=== PATIENT | female | born 1975 | race Caucasian/White ===

== ENCOUNTER 2022-07-31 17:14 | Emergency (ER) | payer OTHER, SELFPAY ==
[2022-07-31 17:15] VITALS: BP 155/62; PULSE 84; RESP 16; TEMP 36.7; O2SAT 96; BMI 44.6
--- NOTE | 2022-07-31 17:46 | XR_ITS ---
PROCEDURE INFORMATION: Exam: XR Chest Exam date and time: 07/31/2022 5:55 PM Age: 47 years old Clinical indication: Cough and other: Congestion; Additional info: Cough, congestion TECHNIQUE: Imaging protocol: Radiologic exam of the chest. Views: 2 views. COMPARISON: No relevant prior studies available. FINDINGS: Lungs: Mild hyperexpansion and hyperlucency with mild diaphragmatic flattening suggesting possible COPD. Pulmonary vasculature grossly normal. Bilateral perihilar stranding with mild bronchial wall thickening suspicious for changes of bronchitis/bronchiolitis versus chronic perihilar scarring/fibrosis. No consolidations. Mild bilateral apical pleural/parenchymal scarring. Granulomatous calcification in the right mid lung. Pleural spaces: No pleural effusion. No pneumothorax. Heart/Mediastinum: Heart size normal. No tracheal/mediastinal shift. Bones/joints: No acute osseous abnormalities are identified. IMPRESSION: 1. Bilateral perihilar stranding and peribronchial thickening suggesting changes of bronchitis versus perihilar scarring/fibrosis. 2. No consolidations. 3. Underlying changes of COPD and prior granulomatous disease..
--- NOTE | 2022-07-31 17:48 | HMH.EDGENADL ---
Discharge Plan Disposition Patient Disposition: Home, Self-Care Condition: Good Prescriptions Prescriptions: New levofloxacin 500 mg tablet 500 mg PO DAILY 10 Days Qty: 10 0RF prednisone 20 mg tablet 20 mg PO BID Qty: 10 0RF albuterol sulfate 90 mcg/actuation HFA aerosol inhaler 1 - 2 puff inhalation Q6H PRN (Reason: Wheezing) Qty: 1 0RF fluoxetine [Prozac] 20 mg capsule 20 mg PO DAILY Qty: 30 0RF hydroxyzine pamoate [Vistaril] 25 mg capsule 25 mg PO HSP PRN (Reason: sleep) Qty: 30 0RF omeprazole 40 mg capsule,delayed release(DR/EC) 40 mg PO DAILY Qty: 30 0RF fluticasone furoate-vilanterol [Breo Ellipta] 100-25 mcg/dose blister with device 1 inh inhalation DAILY Qty: 1 0RF Referrals Follow up/Referrals: Catalina Araiza APRN [Primary Care Provider] - See instructions Activity Restrictions/Add. Instructions Additional Instructions/Restrictions: Take Levaquin and prednisone as prescribed. Refills on your other medications as prescribed. Follow-up with your primary care provider, call for appointment. Additional instructions for ACUTE BRONCHITIS: Use Tylenol or Ibuprofen for pain or fever. Rest and plenty of fluids. Return immediately if you have an uncontrollable fever greater than 102 degrees, severe headache or neck stiffness, difficulty breathing or shortness of breath, persistent vomiting, severe sore throat or inability to swallow. See your physician if not improving in 4-5 days. Clinical Impressions Clinical Impression: Acute bronchitis, COPD (chronic obstructive pulmonary disease), Medication refill Instructions Patient Instructions: DI for Acute Bronchitis Discharge ED Provider: Cristhian Hyman General Adult HPI General Chief complaint: Upper Respiratory Infection Stated complaint: Cough,SOB,Congestion NARAYAN Time Seen by Provider: 07/31/22 17:30 Mode of Arrival: Ambulatory Source of Information: Patient Limitations: No Limitations Description of Symptoms (Recalled from ER Triage Doc. by RN): PT STATES SHE HAS BEEN OUT OF ALL MEDICATIONS X 4 MONTHS. PT STATES SHE FEELS LIKE HER COPD IS ACTING UP AND SHE NEEDS REFILLS ON HER MEDICATIONS. History of Present Illness HPI narrative: Patient states that she has been sick for the past few days with a cough producing clear to white sputum and shortness of breath. Denies fever. She does have rhinorrhea. She says that she has COPD and wants to get treated before things get worse. She is a smoker. She states that she has not seen her primary care provider since January of this year. She has been out of her medications for 4 months. She says that her primary care provider, Catalina Araiza, moved from [place] to [facility] and she has not been able to get over to see her. She lists her current medications is Prozac 20 mg daily, Vistaril 25 mg at night as needed, omeprazole 40 mg daily, albuterol inhaler, and 1 other inhaler. No known exposure to COVID. Related Data Previous Rx's Medication Instructions Recorded albuterol sulfate 90 mcg/actuation 1 - 2 puff inhalation Q6H PRN 07/31/22 aerosol inhaler Wheezing #1 ea fluoxetine 20 mg capsule (Prozac) 20 mg PO DAILY #30 caps 07/31/22 fluticasone furoate 100 1 inh inhalation DAILY #1 ea 07/31/22 mcg-vilanterol 25 mcg/dose inhalation powder (Breo Ellipta) hydroxyzine pamoate 25 mg capsule 25 mg PO HSP PRN sleep #30 caps 07/31/22 (Vistaril) levofloxacin 500 mg tablet 500 mg PO DAILY 10 days #10 tabs 07/31/22 omeprazole 40 mg capsule,delayed 40 mg PO DAILY #30 caps 07/31/22 release prednisone 20 mg tablet 20 mg PO BID #10 tabs 07/31/22 Allergies Allergy/AdvReac Type Severity Reaction Status Date / Time NO KNOWN ALLERGIES Allergy Uncoded 10/13/17 15:19 PFSH PFSH Social History Smoking Status: Current every day smoker ROS Obtained: Yes Systems reviewed as appropriate & no additional complaints except as documented Constitutional Constitut
--- NOTE | 2022-07-31 18:00 | PC.NURSE ---
rounded on pt at this time. no needs voiced
[2022-07-31 18:01] VITALS: BP 122/77; PULSE 77; RESP 18; O2SAT 95
--- NOTE | 2022-07-31 18:04 | PC.NURSE ---
pt to radiology at this time
--- NOTE | 2022-07-31 18:05 | PC.NURSE ---
pt returned from radiology
[2022-07-31 18:38] VITALS: BP 122/77; PULSE 80; RESP 16; TEMP 36.7; O2SAT 96
== END 2022-07-31 18:39 | disposition home or self-care (01) ==
LOC: ER 18:15
PROVIDERS: Emergency Provider Emergency Medicine; PCP Nurse Practitioner Family
DX: J20.9 Acute bronchitis, unspecified (principal); J44.0 Chronic obstructive pulmonary disease with (acute) lower respiratory infection; Z76.0 Encounter for issue of repeat prescription; Z72.0 Tobacco use
CPT/HCPCS: 71046; 94640; 99283

== ENCOUNTER 2023-01-11 20:58 | Emergency (ER) | payer OTHER, SELFPAY ==
[2023-01-11 20:58] VITALS: BP 151/72; PULSE 62; RESP 23; TEMP 37.1; O2SAT 98; BMI 44.8
[2023-01-11 20:59] VITALS: BMI 44.8
--- NOTE | 2023-01-11 21:01 | ECG_ITS ---
APPROVED REPORT Exam: Resting ECG HR:74 bpm ECG Measurements Heart Rate 74 AXES DE 155 P 27 QRSd 100 QRS 56 QT 395 T 74 QTc 423 Conclusion SINUS RHYTHM NORMAL ECG UNCONFIRMED REPORT Electronically signed by : Jerod Muñoz MD 01/12/2023 17:33:47
--- NOTE | 2023-01-11 21:01 | XR_ITS ---
PROCEDURE INFORMATION: Exam: XR Chest Exam date and time: 01/11/2023 9:07 PM Age: 47 years old Clinical indication: Pain; Chest pressure; Additional info: SOA TECHNIQUE: Imaging protocol: Radiologic exam of the chest. Views: 2 views. COMPARISON: CR XR CHEST 2V 07/31/2022 5:55 PM FINDINGS: Lungs: Stable interstitial coarsening. No consolidation. Pleural spaces: No pneumothorax. Heart/Mediastinum: No cardiomegaly. Bones/joints: Scoliosis. No acute fracture. IMPRESSION: No acute findings.
--- NOTE | 2023-01-11 21:11 | PC.NURSE ---
RT at BS to administer breathing treatment
[2023-01-11 21:15] LABS: Basophils # 0.1 K/mm3 (0-0.2); Basophils % 1.7 % (0.1-2.0); Eosinophils # 0.1 K/mm3 (0.0-0.4); Eosinophils % 1.1 % (0.1-12.0); Hematocrit 42.7 % (37.0-47.0); Hemoglobin 13.7 g/dL (12.2-16.2); Lymphocytes # 3.3 K/mm3 (0.7-4.5); Lymphocytes % 40.4 % (10-50); Mean Corpuscular HGB Conc 32.1 g/dL (31.8-35.4); Mean Corpuscular Hemoglobin 29.7 pg (27.0-31.2); Mean Corpuscular Volume 92.4 fl (81-99); Mean Platelet Volume 8.1 fl (7.4-10.4); Monocytes # 0.4 K/mm3 (0.1-1.0); Monocytes % 5.4 % (1.7-9.3); Neutrophils # 4.1 K/mm3 (1.8-7.8); Neutrophils % 51.4 % (37.0-80.0); Platelet Count 281 K/mm3 (142-424); Red Blood Count 4.62 M/mm3 (4.20-5.40); Red Cell Distribution Width 13.6 % (11.5-17.5)
[2023-01-11 21:16] LABS: Coronavirus 19, PCR Not Detected (NotDetected); Influenza A, PCR Not Detected (NotDetected); Influenza B, PCR Not Detected (NotDetected)
--- NOTE | 2023-01-11 21:16 | PC.NURSE ---
Pt gone to RAD via wheelchair
[2023-01-11 21:18] LABS: Alanine Aminotransferase 19 U/L (12-78); Albumin Level 4.7 g/dl (3.5-5.0); Albumin/Globulin Ratio 1.7 (1.1-1.8); Alkaline Phosphatase 53 U/L (38-126); Anion Gap 10.5 mEq/L (5-15); Aspartate Amino Transferase 32 U/L (14-36); Bilirubin,Total 0.5 mg/dl (0.2-1.3); Blood Urea Nitrogen 16 mg/dl (7-17); Calcium 8.8 mg/dl (8.4-10.2); Carbon Dioxide 32 mmol/L (22.0-30.0); Chloride 102 mmol/L (98-107); Creatinine Clearance Estimated 78 mL/min (50-200); Estimated Glomerular Filt Rate 89 ml/min (>60); GFR (African American) 108 ML/MIN (>60); Globulin 2.7 g/dL (1.3-3.2); Glucose 106 mg/dl (74-100); Potassium 3.5 mmoL/L (3.5-5.1); Sodium 141 mmol/L (136-145); Total Protein,Serum 7.4 g/dl (6.3-8.2)
--- NOTE | 2023-01-11 21:19 | PC.NURSE ---
Pt back from RAD
[2023-01-11 21:23] LABS: C-Reactive Protein 1.2 mg/L (0-4)
[2023-01-11 21:31] VITALS: BP 124/67; RESP 16
[2023-01-11 21:32] LABS: NT Pro Brain Natriuretic Pep. 169 pg/mL (0-125)
--- NOTE | 2023-01-11 21:33 | HMH.EDSOB ---
Discharge Plan Disposition Chief Complaint: Shortness of Breath/Dyspnea Prescriptions Prescriptions: No Action albuterol sulfate 90 mcg/actuation HFA aerosol inhaler 1 - 2 puff inhalation Q6H PRN (Reason: Wheezing) Qty: 1 0RF hydroxyzine pamoate [Vistaril] 25 mg capsule 25 mg PO HSP PRN (Reason: sleep) Qty: 30 0RF omeprazole 40 mg capsule,delayed release(DR/EC) 40 mg PO DAILY fluoxetine [Prozac] 20 mg capsule 20 mg PO DAILY fluticasone furoate-vilanterol [Breo Ellipta] 100-25 mcg/dose blister with device 1 inh inhalation DAILY rosuvastatin 40 mg tablet 40 mg PO DAILY Referrals Follow up/Referrals: Megan Pena APRN [Primary Care Provider] - See instructions Clinical Impressions Clinical Impression: Chest pain Instructions Patient Instructions: DI for Chest Pain Discharge ED Provider: Gifty (ED)Chaitanya Resp/SOB HPI General Chief Complaint: Shortness of Breath/Dyspnea Stated Complaint: SOA with chest tightness Time Seen by Provider: 01/11/23 21:00 Mode of Arrival: Family Vehicle Source of Information: Patient, Relative and Medical Record Limitations: No Limitations Description of Symptoms (Recalled from ER Triage Doc. by RN): Pt c/o SOA, tightness in her chest from her breathing, and posterior neck pain. States this has been going on for about 3 days. She denies any n/v/d. She does any significant cardiac hx. She reports I have been feeling so bad and I'm out of my medicines . Pt is out Prozac, Omeprazole, and Rousvastatin for over 1 wk. Denies any productive cough. History of Present Illness over the last week has chest tightness with rad to neck - no known ht dis- no resp sx - does smoke - reports sx with min exertion Complaint: shortness of breath, pain with inspiration and chest pain Onset (ago): day(s) Severity: moderate Consistency/Duration: intermittent Known history of: COPD and other (hyperlipidemia) Associated symptoms: denies other symptoms Treatment prior to arrival: none Related Data Home oxygen amount: none Home Medications Medication Instructions Recorded Confirmed fluoxetine 20 mg capsule (Prozac) 20 mg PO DAILY Anxiety with 01/11/23 01/11/23 depression fluticasone furoate 100 1 inh inhalation DAILY Breathing 01/11/23 01/11/23 mcg-vilanterol 25 mcg/dose problems inhalation powder (Breo Ellipta) omeprazole 40 mg capsule,delayed 40 mg PO DAILY GERD 01/11/23 01/11/23 release rosuvastatin 40 mg tablet 40 mg PO DAILY High cholesterol 01/11/23 01/11/23 Previous Rx's Medication Instructions Recorded albuterol sulfate 90 mcg/actuation 1 - 2 puff inhalation Q6H PRN 07/31/22 aerosol inhaler Wheezing #1 ea hydroxyzine pamoate 25 mg capsule 25 mg PO HSP PRN sleep #30 caps 07/31/22 (Vistaril) Allergies Allergy/AdvReac Type Severity Reaction Status Date / Time Penicillins Allergy Unknown as a Verified 01/11/23 21:18 child Well's Criteria PE Score Clinical signs/symptoms of DVT: No PE is #1 diagnosis or equally likely: Yes Heart rate is > 100: Yes Immobile at least 3 days, or surgery in past 4 wks: No Previously, obj. diagnosed PE or DVT: No Hemoptysis: No Malignancy w/Rx within 6mo, or palliative: No PE Score: 4 Risk of Pulmonary Embolism by score: >3 pts=Hi Risk (78%) [facility] Disclaimer: The information contained in this section may have been updated after the patient was seen, as this information can be updated by other users. Social History Smoking Status: Current every day smoker alcohol intake: never current occupational status: employed Travel in the last 8 weeks: None ROS Obtained: Yes All systems reviewed & no additional complaints except as documented Physical Exam General General appearance: alert and obese Head Head exam: normocephalic Eye Eye exam: Present PERRL and EOMI ENT ENT exam: Present mucous membranes moist Neck Neck exam: Present trachea midline Respiratory Respiratory
[2023-01-11 21:35] LABS: Troponin I < 0.01 ng/ml (0.00-0.034)
[2023-01-11 21:37] LABS: Procalcitonin 0.043 ng/mL (0.0-2.0)
--- NOTE | 2023-01-11 21:40 | PC.NURSE ---
Dr. Durbin at
[2023-01-11 21:48] LABS: Erythrocyte Sedimentation Rate 15 mm/hr (0-20)
--- NOTE | 2023-01-11 21:54 | PC.NURSE ---
pt attempting to give a urine sample
--- NOTE | 2023-01-11 21:57 | PC.NURSE ---
Pt ambulatory to bathroom and was able to provide urine sample
[2023-01-11 22:00] VITALS: BP 132/71; PULSE 65; RESP 17; O2SAT 97
[2023-01-11 22:02] LABS: Microscopic, Urine URINE MICROSCOPIC (MICROSCOPIC)
--- NOTE | 2023-01-11 22:02 | PC.NURSE ---
Rechecked with pt's pain. After the nitro tablet, her tightness is now 0/10 on LACE ROLLER. notified and new order for 1 Nitro paste. Pt & her daughter updated on POC and results thus far.
[2023-01-11 22:14] LABS: Appearance,Urine CLEAR (Clear); Bilirubin,Urine Negative (Negative); Blood, Urine Negative (Negative); Color,Urine YELLOW (Yellow); Glucose,Urine (UA) Negative (Negative); Ketones,Urine Negative (Negative); Leukocyte Esterase,Urine TRACE (Negative); Nitrate,Urine Negative (Negative); PH,Urine 6.5 (5.0-8.5); Protein,Urine Negative (Negative); Specific Gravity, Urine <= 1.005 (1.005-1.030); Urobilinogen,Urine 0.2 EU/dl (0.2)
--- NOTE | 2023-01-11 22:16 | PC.NURSE ---
Dr. Durbin at BS speaking with pt
[2023-01-11 22:30] VITALS: BP 127/73; PULSE 69; RESP 18; O2SAT 97
[2023-01-11 22:48] LABS: Bacteria,Urine Trace /lpf; Squamous Epithelial Cell,Urine 20-50 #/hpf (0-5)
[2023-01-11 22:50] LABS: D-Dimer 0.68 ug/mL (0.0-0.5)
--- NOTE | 2023-01-11 22:52 | CT_ITS ---
PROCEDURE INFORMATION: Exam: CTA Chest With Contrast Exam date and time: 01/11/2023 11:13 PM Age: 47 years old Clinical indication: Shortness of breath; Additional info: SOA, chest pain, elevated d-dimer TECHNIQUE: Imaging protocol: Computed tomographic angiography of the chest with contrast. 3D rendering (Not supervised by radiologist): MIP and/or 3D reconstructed images were created by the technologist. Radiation optimization: All CT scans at this facility use at least one of these dose optimization techniques: automated exposure control; mA and/or kV adjustment per patient size (includes targeted exams where dose is matched to clinical indication); or iterative reconstruction. Contrast material: ISOVUE; Contrast volume: 70 ml; Contrast route: INTRAVENOUS (IV); REPORTING DATA: Count of CT and Cardiac NM exams in prior 12 months: This patient has received 0 known CTs and 0 known cardiac nuclear medicine studies in the 12 months prior to the current study. COMPARISON: CR XR CHEST 2V 01/11/2023 9:07 PM FINDINGS: Pulmonary arteries: Normal. No pulmonary emboli. Aorta: Unremarkable. No aortic aneurysm. No aortic dissection. Lungs: Calcified granuloma right lung Pleural spaces: Unremarkable. No pneumothorax. No pleural effusion. Heart: Unremarkable. No cardiomegaly. No pericardial effusion. Lymph nodes: Unremarkable. No enlarged lymph nodes. Bones/joints: Unremarkable. No acute fracture. Soft tissues: Unremarkable. IMPRESSION: No evidence for pulmonary embolus.
--- NOTE | 2023-01-11 22:57 | PC.NURSE ---
s/w pt regarding PE protocol CT, she is agreeable.
--- NOTE | 2023-01-11 22:59 | PC.NURSE ---
pt back from CT scan
--- NOTE | 2023-01-11 23:08 | PC.NURSE ---
pt to ct scan via wheelchair
--- NOTE | 2023-01-11 23:09 | PC.NURSE ---
Pt gone to CT
--- NOTE | 2023-01-11 23:17 | PC.NURSE ---
pt back from CT scan
[2023-01-12 00:09] LABS: Troponin I < 0.01 ng/ml (0.00-0.034)
--- NOTE | 2023-01-12 00:10 | PC.NURSE ---
Dr. Durbin s/w Dr. Serna- hospitalist for possible admission.
[2023-01-12 00:13] VITALS: BP 124/67; PULSE 83; RESP 19; TEMP 36.8; O2SAT 95
--- NOTE | 2023-01-12 00:14 | PC.NURSE ---
Pt ambulatory to bathroom
--- NOTE | 2023-01-12 00:15 | PC.NURSE ---
Dr. Durbin at bedside discussing results and discharge.
== END 2023-01-12 00:29 | disposition home or self-care (01) ==
PROVIDERS: Emergency Provider Emergency Medicine; PCP Nurse Practitioner
DX: R07.89 Other chest pain (principal); R06.02 Shortness of breath
CPT/HCPCS: 71046; 71275; 80053; 81001; 83880; 84145; 84484; 85025; 85378; 85651; 86140; 96360; 96361; 96374; 99285; C9803; Q9967; U0003; U0005

== ENCOUNTER 2025-04-19 14:37 | Outpatient (CLI) | payer OTHER, SELFPAY ==
--- NOTE | 2025-04-19 14:39 | CT_ITS ---
FINAL REPORT CLINICAL HISTORY: SCREENING current smoker 1/2ppd x37 years, copd COMPARISON: CTA chest 01/12/2023 FINDINGS: CT CHEST LOW DOSE SCREENING 50-year-old female, current smoker, [id number] history HISTORY: Screening exam for lung cancer. DOSE: CTDI vol: 2.90 mGy, DLP: 100.55 mGy*cm TECHNIQUE: Axial CT without IV contrast administration using low dose protocol. This study was performed with techniques to keep radiation doses as low as reasonably achievable, (ALARA). Individualized dose reduction techniques using automated exposure control or adjustment of mA and/or kV according to the patient's size were employed. No acute lung disease is present. There is fibrosis/partial collapse of the right middle lobe, that is similar to that seen on the prior CTA of 2022. No pulmonary lesions are seen suspicious for neoplasm. No pleural or pericardial effusion is seen. No adenopathy or mass lesion is present. IMPRESSION: No evidence of primary lung neoplasm, stable exam. LUNG RADS CATEGORY 1 RECOMMENDATION: 12 month LDCT follow up Reviewed, Interpreted and Dictated by Ruddy Martines MD Transcribed by Olivia Vazquez Authenticated and [facility]
--- OUTSIDE RECORDS SUMMARY | 2025-04-19 14:42 | XMS_ITS | Data Portability ---
Author Organization [employer] [facility] Address [address] [place] [address] Assessment Encounter Date Assessment Date Assessment LastModified by Organization Details LastModified Time 10/20/2024 10/20/2024 Mouthpiece on current tubing set is broken, needs new tubing/mouthpi gisel for nebulizer. SP02 in clinic improved to 90% from 86% on arrival after neb, but breath sound still abnormal. She is not in distress. We will treat for COPD exacerbation, but get chest XR to r/o pneumonia. Negative for COVID/influenz a. Medications as prescribed per plan below. To ER with severe SOA. Follow up if no improvement or worsening and PRN. Not available 10/20/2024 15:00:32 Plan of Treatment Reminders Order Date Submit Date Provider Last Modified By Organization Details Last Modified Time Details Appointments SAME DAY ACCESS 2024 10:15A M Transporter Not available Not available Not available FOLLOW UP 15 2024 10:45A M Curt Pena APRN Not available Not available Not available Lab lipid panel, serum 2024 025 [employer] [facility] ([place]), [address], [place], [address], 03/29/2025 08:12:14 CMP, serum or plasma 2024 025 NOEMI [facility]), [address], [place], [address], 03/29/2025 08:12:13 CBC w/ auto diff 2024 025 [facility] [address] [place], [address], 03/29/2025 08:12:13 TSH + free T4, serum 2024 025 [facility] [address] [place], [address], 03/29/2025 08:12:12 HbA1c (hemog lobin A1c), blood 2024 025 [facility] [address] [place], [address], 03/29/2025 08:12:15 vitami n D, 25-hyd juve, total, serum 2024 025 [facility] [address] [place], [address], 03/29/2025 08:12:15 cobala min and folate panel, serum 2024 025 [facility] ([place]), [address] [place], [address], 03/29/2025 08:12:14 rapid flu (A+B) [address], [address], 10/20/2024 14:34:37 rapid SARS CoV 2 Ag, QL, [place], upper respir atory specim en [address], [address], 10/20/2024 14:34:37 Referral None record ed. Procedures None record ed. Surgeries None record ed. Imaging LDCT, chest, for lung cancer screen ing - first avail [address] ([facility]), [address], [place], [address], 04/18/2025 10:10:24 home sleep study [address] [facility], [address], [place], [address], 04/06/2025 10:23:12 XR, chest, 2 view 2023 024 [facility], [address] [place] [address], [address], 10/20/2024 17:24:03 Medication Orders fluoxe gia 20 mg capsul e [address] [facility], [address] [place] [address], [address], 03/28/2025 16:31:21 fluoxe gia 40 mg capsul e [address] [facility], [address] [place] [address], [address], 03/28/2025 16:31:23 hydrox yzine pamoat e 25 mg capsul e [address] [facility], [address] [place] [address], [address], 03/28/2025 14:05:46 albute rol sulfat e 2.5 mg/3 mL (0.083 %) soluti on for nebuli zation [address] [facility], [address] [place] [address], [address], 03/28/2025 16:31:24 ipratr opium 0.5 mg-alb uterol 3 mg (2.5 mg base)/ 3 mL nebuli zation soln 2024 025 [email or web address] Not available 03/30/2025 14:24:26 Treleg y Ellipt a 100 mcg-62 .5 mcg-25 mcg powder for inhala tion [address] [facility], [address] [place] [address], [address], 03/28/2025 13:51:36 Airsup ra 90 mcg-80 mcg/ac tuatio n HFA aeroso l inhale r [address] [facility], [address] [place] [address], [address], 04/01/2025 10:57:27 rosuva statin 40 mg tablet [address] [facility], [address] [place] [address], [address], 03/28/2025 14:05:46 omepra zole 40 mg capsul e,micah yed releas e [address] [facility], [address] [place] [address], [address], 03/28/2025 16:31:23 ibupro fen 800 mg tablet [address] [facility], [address] [place] [address], [address], 03/28/2025 16:31:22 benzon atate 200 mg capsul e [address] [facility], [address] [place] [address], [address], 03/07/2025 15:35:41 predni sone 20 mg tablet [address] [facility], [address] [place] [address], [address], 03/28/2025 14:20:47 doxycy yip monohy drate 100 mg capsul e [address] [facility], [address] [place] [address], [address], 03/28/2025 14:20:46 omepra zole 40 mg capsul e,micah thackerd releas e [address] [facility], [address] [place] [address], [address], 12/26/2024 15:56:46 ibupro fen 800 mg tablet [address] [facility], [address] [place] [address], [address], 01/31/2025 17:36:05 hydrox yzine pamoat e 25 mg capsul e [address] [facility], [address] [place] [address], [address], 03/14/2025 15:09:20 fluoxe gia 40 mg capsul e [address] [facility], [address] [place] [address], [address], 12/26/2024 15:56:44 rosuva statin 40 mg tablet [address] [facility], [address] [place] [address], [address], 03/07/2025 15:35:40 albute rol sulfat e 2.5 mg/3 mL (0.083 %) soluti on for nebuli zation [address] [facility], [address] [place] [address], [address], 01/31/2025 17:36:03 Ventol in HFA 90 mcg/ac tuatio n aeroso l inhale r [address] [facility], [address] [place] [address], [address], 01/31/2025 17:36:05 predni sone 20 mg tablet [address], [address] [place] [address], [address], 03/28/2025 12:59:41 cefdin ir 300 mg capsul e [address] [facility], [address] [place] [address], [address], 12/26/2024 13:50:37 Depo-M edrol 80 mg/mL suspen kimber for inject ion 2023 024 [place] [address] Not available 12/12/2024 11:45:37 predni sone 20 mg tablet [address], [address] [place] [address], [address], 03/28/2025 12:59:41 doxycy yip hyclat e 100 mg capsul e 2023 025 [facility], [address] [place] [address], [address], 12/12/2024 12:02:10 ipratr opium 0.5 mg-alb uterol 3 mg (2.5 mg base)/ 3 mL nebuli zation soln 2023 024 [email or web address] Not available 10/20/2024 16:39:13 Patient TargetsNo targets recorded. Patient Instructions Encounter Date Encounter Id Patient Instructions Last Modified By Organization Details Last Modified Time 10/20/2024 [id number] learning about fever Not available 10/20/2024 14:34:37 chronic obstructive pulmonary disease (COPD): care instructions Not available 10/20/2024 14:34:37 learning about copd and how to prevent lung infections Not available 10/20/2024 14:34:37 Reason for Referral None Reported. Results Created Date Observation Date Name Description Value Unit Range Abnormal Flag Note LastModifiedBy Organization Detail LastModifiedTime 09/27/20 24 09/28/2024 CBC WITH DIFFE RENTI AL/PL ATELE T WBC 5.5 x10e3 /uL 3.4-10 .8 normal Not Available [facility] ([facility]) [address] [facility], [place], [address], 09/28/2024 08:14:19 09/27/20 24 09/28/2024 CBC WITH DIFFE RENTI AL/PL ATELE T RBC 4.47 x10e6 /uL 3.77-5 .28 normal Not Available [facility] ([facility]) [address] [place], [address], 09/28/2024 08:14:19 09/27/20 24 09/28/2024 CBC WITH DIFFE RENTI AL/PL ATELE T hemoglobin 13.0 g/dL 11.1-1 5.9 normal Not Available [facility] ([facility]) [address] [place], [address], 09/28/2024 08:14:19 09/27/20 24 09/28/2024 CBC WITH DIFFE RENTI AL/PL ATELE T hematocrit 40.1 % 34.0-4 6.6 normal Not Available [facility] ([facility]) [address] [place], [address], 09/28/2024 08:14:19 09/27/20 24 09/28/2024 CBC WITH DIFFE RENTI AL/PL ATELE T MCV 90 fL 79-97 normal Not Available [facility] ([facility]) [address] [place], [address], 09/28/2024 08:14:19 09/27/20 24 09/28/2024 CBC WITH DIFFE RENTI AL/PL ATELE T MCH 29.1 pg 26.6-3 3.0 normal Not Available [facility] ([facility]) [address] [facility], [place], [address], 09/28/2024 08:14:19 09/27/20 24 09/28/2024 CBC WITH DIFFE RENTI AL/PL ATELE T MCHC 32.4 g/dL 31.5-3 5.7 normal Not Available [facility] ([facility]) [address] [facility], [place], [address], 09/28/2024 08:14:19 09/27/20 24 09/28/2024 CBC WITH DIFFE RENTI AL/PL ATELE T RDW 13.1 % 11.7-1 5.4 Not Available [facility] ([facility]) [address] [facility], [place], [address], 09/28/2024 08:14:19 09/27/20 24 09/28/2024 CBC WITH DIFFE RENTI AL/PL ATELE T platelets 270 x10e3 /uL 150-45 0 normal Not Available [facility] ([facility]) [address] [facility], [place], [address], 09/28/2024 08:14:19 09/27/20 24 09/28/2024 CBC WITH DIFFE RENTI AL/PL ATELE T neutrophils 48 % not estab. normal Not Available [facility] ([facility]) [address] [facility], [place], [address], 09/28/2024 08:14:19 09/27/20 24 09/28/2024 CBC WITH DIFFE RENTI AL/PL ATELE T lymphs 42 % not estab. normal Not Available [facility] ([facility]) [address] [facility], [place], [address], 09/28/2024 08:14:19 09/27/20 24 09/28/2024 CBC WITH DIFFE RENTI AL/PL ATELE T monocytes 7 % not estab. normal Not Available [facility] ([facility]) [address] [facility], [place], [address], 09/28/2024 08:14:19 09/27/20 24 09/28/2024 CBC WITH DIFFE RENTI AL/PL ATELE T eos 2 % not estab. normal Not Available [facility] ([facility]) [address] [facility], [place], [address], 09/28/2024 08:14:19 09/27/20 24 09/28/2024 CBC WITH DIFFE RENTI AL/PL ATELE T basos 1 % not estab. normal Not Available [facility] ([facility]) [address] [facility], [place], [address], 09/28/2024 08:14:19 09/27/20 24 09/28/2024 CBC WITH DIFFE RENTI AL/PL ATELE T immature cells INFORMATION TECHNOLOGY SPECIALIST Not Available [facility]) [address] [facility], [place], [address], 09/28/2024 08:14:19 09/27/20 24 09/28/2024 CBC WITH DIFFE RENTI AL/PL ATELE T neutrophils (absolute) 2.7 x10e3 /uL 1.4-7. 0 normal Not Available [facility] ([facility]) [address] [place], [address], 09/28/2024 08:14:19 09/27/20 24 09/28/2024 CBC WITH DIFFE RENTI AL/PL ATELE T lymphs (absolute) 2.3 x10e3 /uL 0.7-3. 1 normal Not Available [facility] ([facility]) [address] [place], [address], 09/28/2024 08:14:19 09/27/20 24 09/28/2024 CBC WITH DIFFE RENTI AL/PL ATELE T monocytes(ab solute) 0.4 x10e3 /uL 0.1-0. 9 normal Not Available [facility] ([facility]) [address] [facility], [place], [address], 09/28/2024 08:14:19 09/27/20 24 09/28/2024 CBC WITH DIFFE RENTI AL/PL ATELE T eos (absolute) 0.1 x10e3 /uL 0.0-0. 4 normal Not Available [facility] ([facility]) [address] [facility], [place], [address], 09/28/2024 08:14:19 09/27/20 24 09/28/2024 CBC WITH DIFFE RENTI AL/PL ATELE T baso (absolute) 0.0 x10e3 /uL 0.0-0. 2 normal Not Available [facility] ([facility]) [address] [facility], [place], [address], 09/28/2024 08:14:19 09/27/20 24 09/28/2024 CBC WITH DIFFE RENTI AL/PL ATELE T immature granulocytes 0 % not estab. Not Available [facility] ([facility]) [address] [facility], [place], [address], 09/28/2024 08:14:19 09/27/20 24 09/28/2024 CBC WITH DIFFE RENTI AL/PL ATELE T immature grans (abs) 0.0 x10e3 /uL 0.0-0. 1 Not Available [facility] ([facility]) [address] [facility], [place], [address], 09/28/2024 08:14:19 09/27/20 24 09/28/2024 CBC WITH DIFFE RENTI AL/PL ATELE T NRBC INFORMATION TECHNOLOGY SPECIALIST Not Available [facility] ([facility]) [address] [facility], [place], [address], 09/28/2024 08:14:19 09/27/20 24 09/28/2024 CBC WITH DIFFE RENTI AL/PL ATELE T hematology comments: INFORMATION TECHNOLOGY SPECIALIST Not Available [facility] ([facility]) [address] [facility], [place], [address], 09/28/2024 08:14:19 09/27/20 24 09/28/2024 COMP. METAB OLIC PANEL (14) glucose 86 mg/dL 70-99 normal Not Available [facility] ([facility]) [address] [facility] [place] [place], [address], 09/28/2024 08:14:20 09/27/20 24 09/28/2024 COMP. METAB OLIC PANEL (14) BUN 19 mg/dL 6-24 normal Not Available [facility] ([facility]) [address] [facility] [place] [place], [address], 09/28/2024 08:14:20 09/27/20 24 09/28/2024 COMP. METAB OLIC PANEL (14) creatinine 0.62 mg/dL 0.57-1 .00 normal Not Available [facility] ([facility]) [address] [facility] [place], [address], 09/28/2024 08:14:20 09/27/20 24 09/28/2024 COMP. METAB OLIC PANEL (14) eGFR 108 mL/mi n/1.7 3 >59 normal Not Available [facility] ([facility]) [address] [facility] [place], [address], 09/28/2024 08:14:20 09/27/20 24 09/28/2024 COMP. METAB OLIC PANEL (14) BUN/creatini ne ratio 31 9-23 above high normal Not Available [facility] ([facility]) [address] [facility] [place], [address], 09/28/2024 08:14:20 09/27/20 24 09/28/2024 COMP. METAB OLIC PANEL (14) sodium 142 mmol/ L 134-14 4 normal Not Available [facility] ([facility]) [address] [facility] [place], [address], 09/28/2024 08:14:20 09/27/20 24 09/28/2024 COMP. METAB OLIC PANEL (14) potassium 3.8 mmol/ L 3.5-5. 2 normal Not Available [facility] ([facility]) [address] [facility], [place], [address], 09/28/2024 08:14:20 09/27/20 24 09/28/2024 COMP. METAB OLIC PANEL (14) chloride 103 mmol/ L 96-106 normal Not Available [facility] ([facility]) [address] [facility], [place], [address], 09/28/2024 08:14:20 09/27/20 24 09/28/2024 COMP. METAB OLIC PANEL (14) carbon dioxide, total 26 mmol/ L 20-29 normal Not Available [facility] ([facility]) [address] [facility], [place], [address], 09/28/2024 08:14:20 09/27/20 24 09/28/2024 COMP. METAB OLIC PANEL (14) calcium 9.4 mg/dL 8.7-10 .2 normal Not Available [facility] ([facility]) [address] [facility], [place], [address], 09/28/2024 08:14:20 09/27/20 24 09/28/2024 COMP. METAB OLIC PANEL (14) protein, total 6.7 g/dL 6.0-8. 5 normal Not Available [facility] ([facility]) [address] [facility], [place], [address], 09/28/2024 08:14:20 09/27/20 24 09/28/2024 COMP. METAB OLIC PANEL (14) albumin 4.4 g/dL 3.9-4. 9 normal Not Available [facility] ([facility]) [address] [facility], [place], [address], 09/28/2024 08:14:20 09/27/20 24 09/28/2024 COMP. METAB OLIC PANEL (14) globulin, total 2.3 g/dL 1.5-4. 5 Not Available [facility] ([facility]) [address] [place], [address], 09/28/2024 08:14:20 09/27/20 24 09/28/2024 COMP. METAB OLIC PANEL (14) bilirubin, total 0.3 mg/dL 0.0-1. 2 normal Not Available [facility] ([facility]) [address] [place], [address], 09/28/2024 08:14:20 09/27/20 24 09/28/2024 COMP. METAB OLIC PANEL (14) alkaline phosphatase 62 IU/L 44-121 normal Not Available [facility]) [address] [place], [address], 09/28/2024 08:14:20 09/27/20 24 09/28/2024 COMP. METAB OLIC PANEL (14) AST (SGOT) 16 IU/L 0-40 normal Not Available [facility] ([facility]) [address] [place], [address], 09/28/2024 08:14:20 09/27/20 24 09/28/2024 COMP. METAB OLIC PANEL (14) ALT (SGPT) 9 IU/L 0-32 normal Not Available [facility] ([facility]) [address] [place], [address], 09/28/2024 08:14:20 09/27/20 24 09/28/2024 HEMOG LOBIN A1C hemoglobin A1C 5.9 % 4.8-5. 6 above high normal Predi abete s: 5.7 - 6.4 Diabe kim: >6.4 Glyce vern contr ol for adult s with diabe kim: <7.0 Not Available [facility] ([facility]) [address] [place], [address], 09/28/2024 08:14:21 09/27/20 24 09/28/2024 VITAM IN D, 25-HY DROXY vitamin D, 25-hydroxy 11.2 NG/mL 30.0-1 00.0 below low normal Vitam in D defic iency has been defin ed by the Insti tute of Medic ine and an Endoc rine Socie ty pract ice guide line as a level of serum 25-OH vitam in D less than 20 ng/mL (1,2) . The Endoc rine Socie ty went on to furth er defin e vitam in D insuf ficie ncy as a level betwe en 21 and 29 ng/mL (2). 1. IOM (Inst itute of Medic ine). 2009. Chinyere ry refer ence intak es for calci um and D. Saeed giraldo [place]: [facility] . 2. Haley falcon [place], Richard lizarraga [place], Elsie off-F errar i NARAYAN, et al. Evalu ation , treat ment, and preve ntion of vitam in D defic iency : an Endoc rine Socie ty clini sriram pract ice guide line. JCEM. 2010; 96(7) :1911 -30. Not Available [facility] ([facility]) [address] [facility], [place], [address], 09/28/2024 08:14:21 09/27/20 24 09/28/2024 TSH RFX ON ABNOR MAL TO FREE T4 TSH 1.620 uIU/m L 0.450- 4.500 normal Not Available [facility] ([facility]) [address] [facility], [place], [address], 09/28/2024 08:14:22 10/20/20 24 10/20/2024 rapid SARS CoV 2 Ag, QL, [place], upper respi rator y speci men SARS CoV Ag negati ve Not Available [address], [place], [address], 10/20/2024 14:13:21 10/20/20 24 10/20/2024 rapid flu (A+B) Flu A negati ve Not Available [address], [address], 10/20/2024 14:13:17 10/20/20 24 10/20/2024 rapid flu (A+B) Flu B negati ve Not Available [address], [address], 10/20/2024 14:13:17 03/28/20 25 03/29/2025 TSH+F REE T4 TSH 0.770 uIU/m L 0.450- 4.500 normal Not Available [facility] ([facility]) [address] [place], [address], 03/29/2025 08:12:12 03/28/20 25 03/29/2025 TSH+F REE T4 T4,free(dire ct) 1.15 NG/dL 0.82-1 .77 normal Not Available [facility] ([facility]) [address] [place], [address], 03/29/2025 08:12:12 03/28/20 25 03/29/2025 CBC WITH DIFFE RENTI AL/PL ATELE T WBC 4.2 x10e3 /uL 3.4-10 .8 normal Not Available [facility] ([facility]) [address] [place], [address], 03/29/2025 08:12:13 03/28/20 25 03/29/2025 CBC WITH DIFFE RENTI AL/PL ATELE T RBC 4.83 x10e6 /uL 3.77-5 .28 normal Not Available [facility] ([facility]) [address] [place], [address], 03/29/2025 08:12:13 03/28/20 25 03/29/2025 CBC WITH DIFFE RENTI AL/PL ATELE T hemoglobin 14.4 g/dL 11.1-1 5.9 normal Not Available [facility] ([facility]) [address] [place], [address], 03/29/2025 08:12:13 03/28/20 25 03/29/2025 CBC WITH DIFFE RENTI AL/PL ATELE T hematocrit 44.5 % 34.0-4 6.6 normal Not Available [facility] ([facility]) [address] [place], [address], 03/29/2025 08:12:13 03/28/2003/29/2025 CBC WITH DIFFE RENTI AL/PL ATELE T MCV 92 fL 79-97 normal Not Available [facility] ([facility]) [address] [facility], [place], [address], 03/29/2025 08:12:13 03/28/2003/29/2025 CBC WITH DIFFE RENTI AL/PL ATELE T MCH 29.8 pg 26.6-3 3.0 normal Not Available [facility] ([facility]) [address] [place], [address], 03/29/2025 08:12:13 03/28/2003/29/2025 CBC WITH DIFFE RENTI AL/PL ATELE T MCHC 32.4 g/dL 31.5-3 5.7 normal Not Available [facility] ([facility]) [address] [place], [address], 03/29/2025 08:12:13 03/28/20 25 03/29/2025 CBC WITH DIFFE RENTI AL/PL ATELE T RDW 14.0 % 11.7-1 5.4 Not Available [facility] ([facility]) [address] [place], [address], 03/29/2025 08:12:13 03/28/20 25 03/29/2025 CBC WITH DIFFE RENTI AL/PL ATELE T platelets 250 x10e3 /uL 150-45 0 normal Not Available [facility] ([facility]) [address] [facility], [place], [address], 03/29/2025 08:12:13 03/28/20 25 03/29/2025 CBC WITH DIFFE RENTI AL/PL ATELE T neutrophils 48 % not estab. normal Not Available [facility] ([facility]) [address] [facility], [place], [address], 03/29/2025 08:12:13 03/28/20 25 03/29/2025 CBC WITH DIFFE RENTI AL/PL ATELE T lymphs 39 % not estab. normal Not Available [facility] ([facility]) [address] [facility], [place], [address], 03/29/2025 08:12:13 03/28/20 25 03/29/2025 CBC WITH DIFFE RENTI AL/PL ATELE T monocytes 10 % not estab. normal Not Available [facility] ([facility]) [address] [facility], [place], [address], 03/29/2025 08:12:13 03/28/20 25 03/29/2025 CBC WITH DIFFE RENTI AL/PL ATELE T eos 2 % not estab. normal Not Available [facility] ([facility]) [address] [place], [address], 03/29/2025 08:12:13 03/28/20 25 03/29/2025 CBC WITH DIFFE RENTI AL/PL ATELE T basos 1 % not estab. normal Not Available [facility] ([facility]) [address] [place], [address], 03/29/2025 08:12:13 03/28/20 25 03/29/2025 CBC WITH DIFFE RENTI AL/PL ATELE T immature cells INFORMATION TECHNOLOGY SPECIALIST Not Available [facility]) [address] [place], [address], 03/29/2025 08:12:13 03/28/2003/29/2025 CBC WITH DIFFE RENTI AL/PL ATELE T neutrophils (absolute) 2.0 x10e3 /uL 1.4-7. 0 normal Not Available [facility] ([facility]) [address] [place], [address], 03/29/2025 08:12:13 03/28/2003/29/2025 CBC WITH DIFFE RENTI AL/PL ATELE T lymphs (absolute) 1.7 x10e3 /uL 0.7-3. 1 normal Not Available [facility] ([facility]) [address] [place], [address], 03/29/2025 08:12:13 03/28/2003/29/2025 CBC WITH DIFFE RENTI AL/PL ATELE T monocytes(ab solute) 0.4 x10e3 /uL 0.1-0. 9 normal Not Available [facility] ([facility]) [address] [place], [address], 03/29/2025 08:12:13 03/28/2003/29/2025 CBC WITH DIFFE RENTI AL/PL ATELE T eos (absolute) 0.1 x10e3 /uL 0.0-0. 4 normal Not Available [facility] ([facility]) [address] [place], [address], 03/29/2025 08:12:13 03/28/20 25 03/29/2025 CBC WITH DIFFE RENTI AL/PL ATELE T baso (absolute) 0.0 x10e3 /uL 0.0-0. 2 normal Not Available [facility] ([facility]) [address] [place], [address], 03/29/2025 08:12:13 03/28/20 25 03/29/2025 CBC WITH DIFFE RENTI AL/PL ATELE T immature granulocytes 0 % not estab. Not Available [facility] ([facility]) [address] [facility], [place], [address], 03/29/2025 08:12:13 03/28/20 25 03/29/2025 CBC WITH DIFFE RENTI AL/PL ATELE T immature grans (abs) 0.0 x10e3 /uL 0.0-0. 1 Not Available [facility] ([facility]) [address] [facility], [place], [address], 03/29/2025 08:12:13 03/28/20 25 03/29/2025 CBC WITH DIFFE RENTI AL/PL ATELE T NRBC INFORMATION TECHNOLOGY SPECIALIST Not Available [facility] ([facility]) [address] [facility], [place], [address], 03/29/2025 08:12:13 03/28/20 25 03/29/2025 CBC WITH DIFFE RENTI AL/PL ATELE T hematology comments: INFORMATION TECHNOLOGY SPECIALIST Not Available [facility] ([facility]) [address] [facility], [place], [address], 03/29/2025 08:12:13 03/28/20 25 03/29/2025 COMP. METAB OLIC PANEL (14) glucose 89 mg/dL 70-99 normal Not Available [facility] ([facility]) [address] [place], [address], 03/29/2025 08:12:13 03/28/20 25 03/29/2025 COMP. METAB OLIC PANEL (14) BUN 11 mg/dL 6-24 normal Not Available [facility] ([facility]) [address] [place], [address], 03/29/2025 08:12:13 03/28/20 25 03/29/2025 COMP. METAB OLIC PANEL (14) creatinine 0.78 mg/dL 0.57-1 .00 normal Not Available [facility] ([facility]) [address] [place], [address], 03/29/2025 08:12:13 03/28/20 25 03/29/2025 COMP. METAB OLIC PANEL (14) eGFR 92 mL/mi n/1.7 3 >59 normal Not Available [facility] ([facility]) [address], [place], [address], 03/29/2025 08:12:13 03/28/20 25 03/29/2025 COMP. METAB OLIC PANEL (14) BUN/creatini ne ratio 14 9-23 normal Not Available [facility] ([facility]) [address] [facility], [place], [address], 03/29/2025 08:12:13 03/28/20 25 03/29/2025 COMP. METAB OLIC PANEL (14) sodium 141 mmol/ L 134-14 4 normal Not Available [facility] ([facility]) [address] [facility], [place], [address], 03/29/2025 08:12:13 03/28/20 25 03/29/2025 COMP. METAB OLIC PANEL (14) potassium 4.9 mmol/ L 3.5-5. 2 normal Not Available [facility] ([facility]) [address] [facility], [place], [address], 03/29/2025 08:12:13 03/28/20 25 03/29/2025 COMP. METAB OLIC PANEL (14) chloride 103 mmol/ L 96-106 normal Not Available [facility] ([facility]) [address] [facility], [place], [address], 03/29/2025 08:12:13 03/28/20 25 03/29/2025 COMP. METAB OLIC PANEL (14) carbon dioxide, total 22 mmol/ L 20-29 normal Not Available [facility] ([facility]) [address] [facility], [place], [address], 03/29/2025 08:12:13 03/28/20 25 03/29/2025 COMP. METAB OLIC PANEL (14) calcium 9.7 mg/dL 8.7-10 .2 normal Not Available [facility] ([facility]) [address] [place], [address], 03/29/2025 08:12:13 03/28/20 25 03/29/2025 COMP. METAB OLIC PANEL (14) protein, total 6.8 g/dL 6.0-8. 5 normal Not Available [facility] ([facility]) [address] [place], [address], 03/29/2025 08:12:13 03/28/20 25 03/29/2025 COMP. METAB OLIC PANEL (14) albumin 4.7 g/dL 3.8-4. 9 normal Not Available [facility] ([facility]) [address] [place], [address], 03/29/2025 08:12:13 03/28/20 25 03/29/2025 COMP. METAB OLIC PANEL (14) globulin, total 2.1 g/dL 1.5-4. 5 Not Available [facility] ([facility]) [address] [place], [address], 03/29/2025 08:12:13 03/28/20 25 03/29/2025 COMP. METAB OLIC PANEL (14) bilirubin, total 0.4 mg/dL 0.0-1. 2 normal Not Available [facility] ([facility]) [address] [place], [address], 03/29/2025 08:12:13 03/28/20 25 03/29/2025 COMP. METAB OLIC PANEL (14) alkaline phosphatase 68 IU/L 44-121 normal Not Available [facility] ([facility]) [address] [place], [address], 03/29/2025 08:12:13 03/28/20 25 03/29/2025 COMP. METAB OLIC PANEL (14) AST (SGOT) 20 IU/L 0-40 normal Not Available [facility] ([facility]) [address] [facility] [place] [place], [address], 03/29/2025 08:12:13 03/28/20 25 03/29/2025 COMP. METAB OLIC PANEL (14) ALT (SGPT) 10 IU/L 0-32 normal Not Available [facility] ([facility]) [address] [facility] [place] [place], [address], 03/29/2025 08:12:13 03/28/20 25 03/29/2025 LIPID PANEL cholesterol, total 139 mg/dL 100-19 9 normal Not Available [facility] ([facility]) [address] [facility] [place] [place], [address], 03/29/2025 08:12:14 03/28/20 25 03/29/2025 LIPID PANEL triglyceride s 84 mg/dL 0-149 normal Not Available [facility] ([facility]) [address] [place], [address], 03/29/2025 08:12:14 03/28/20 25 03/29/2025 LIPID PANEL HDL cholesterol 57 mg/dL >39 normal Not Available [facility] ([facility]) [address] [facility] [place] [place], [address], 03/29/2025 08:12:14 03/28/20 25 03/29/2025 LIPID PANEL VLDL cholesterol sriram 16 mg/dL 5-40 Not Available [facility] ([facility]) [address] [facility] [place] [place], [address], 03/29/2025 08:12:14 03/28/20 25 03/29/2025 LIPID PANEL LDL chol calc ([facility]) 66 mg/dL 0-99 Not Available [facility] ([facility]) [address] [place], [address], 03/29/2025 08:12:14 03/28/20 25 03/29/2025 LIPID PANEL LDL calc comment: INFORMATION TECHNOLOGY SPECIALIST Not Available [facility] ([facility]) [address] [facility], [place], [address], 03/29/2025 08:12:14 03/28/20 25 03/29/2025 VITAM IN B12 AND FOLAT E vitamin B12 485 pg/mL 232-12 45 normal Not Available [facility] ([facility]) [address] [facility], [place], [address], 03/29/2025 08:12:14 03/28/20 25 03/29/2025 VITAM IN B12 AND FOLAT E folate (folic acid), serum 15.6 NG/mL >3.0 normal A serum folat e nissa ntrat ion of less than 3.1 ng/mL is consi dered to repre sent clini sriram defic iency . Not Available [facility] ([facility]) [address] [facility], [place], [address], 03/29/2025 08:12:14 03/28/20 25 03/29/2025 HEMOG LOBIN A1C hemoglobin A1C 5.5 % 4.8-5. 6 normal Predi abete s: 5.7 - 6.4 Diabe kim: >6.4 Glyce vern contr ol for adult s with diabe kim: <7.0 Not Available [facility] ([facility]) [address] [place], [address], 03/29/2025 08:12:15 03/28/20 25 03/29/2025 VITAM IN D, 25-HY DROXY vitamin D, 25-hydroxy 14.5 NG/mL 30.0-1 00.0 below low normal Vitam in D defic iency has been defin ed by the Insti tute of Medic ine and an Endoc rine Socie ty pract ice guide line as a level of serum 25-OH vitam in D less than 20 ng/mL (1,2) . The Endoc rine Socie ty went on to [facility] er defin e vitam in D insuf ficie ncy as a level betwe en 21 and 29 ng/mL (2). 1. IOM (Inst itute of Medic ine). 2010. Dieta ry refer ence stan es for calci um and D. Saeed giraldo [place]: The [facility] . 2. H[place] k [place], Binkl ey [place], Bisch off-F errar i NARAYAN, et al. Evalu ation , treat ment, and preve ntion of vitam in D defic iency : an Endoc rine Socie ty clini sriram pract ice guide line. JCEM. 2010; 96(7) :1911 -30. Not Available [facility] ([facility]) [address] [facility], [place], [address], 03/29/2025 08:12:15 10/20/20 24 XR, chest , 2 view No observ ation record ed. [email or web address] [address], [address], 10/21/2024 13:32:08 03/31/20 25 XR, chest , 2 view No observ ation record ed. [id number], [address], 03/31/2025 11:35:04 Result Notes None recorded. Problems Name Problem SNOMED Code Status Onset Date Resolution Date Notes Provider Name and Address Organization Details Recorded Time Chronic obstruct jonathan pulmonar y disease 24769506 Active 2023 Juanita Leung NP [address] [place], [address] , [employer] 4 09:19:01 Acute exacerba tion of chronic obstruct jonathan pulmonar y disease 903024381 Active 2023 Juanita Leung NP [address] [place], [address] , [employer] 4 09:27:25 Prediabe kim 687373216 Active 2023 Rommel Morales, STRUCTURAL STEEL EQUIPMENT [employer]OR [address] [place], [address] , [employer] 4 20:26:23 Vitamin D deficien cy 17327560 Active 2023 Rommel Morales, STRUCTURAL STEEL EQUIPMENT E[employer]OR [address] [place], [place], [address] [place] [address] , [employer] 4 20:26:24 Fever 539395968 Active 2023 Juanita Leung, INFORMATION TECHNOLOGY SPECIALIST [address] [place], [place], [address] [place] [address] , [employer] 4 14:34:39 Persiste nt cough 041949413 Active 2024 Ellen mazariegos, [employer] 5 14:54:22 Candidia sis of mouth 16981305 Completed 201701/19/2018 Problem Code: B37.0; Problem Code Type: ICD-10; Not Available [employer] 2 21:24:32 Candidia sis of mouth 69904113 Completed 201604/26/2017 Problem Code: B37.0; Problem Code Type: ICD-10; Not Available [facility] 2 21:24:32 Candidia sis of vulva 8516937 Completed 201701/19/2018 RENATA mazariegos, [employer] 2 13:49:15 Candidia sis of vulva 2074882 Completed 201810/06/2022 RENATA mazariegos, [employer] 2 13:49:15 Nicotine dependen ce 78350743 Active 2018 Problem Code: F17.200; Problem Code Type: ICD-10; Not Available [employer] 2 21:24:32 Mild major depressi on, single episode 29196451 Completed 201604/26/2017 Problem Code: F32.0; Problem Code Type: ICD-10; Not Available [employer] 2 21:24:32 Restless legs 43105731 Completed 201605/14/2018 Problem Code: G25.81; Problem Code Type: ICD-10; Not Available [facility] 21:24:32 Acute bronchit is 66465796 Completed 201710/08/2018 Problem Code: J20.8; Problem Code Type: ICD-10; Not Available [facility] 2 21:24:32 Low back pain 366498138 Completed 201710/06/2022 Problem Code: M54.5; Problem Code Type: ICD-10; RENATAIVAN HEWITT [employer] 2 13:49:15 Urinary tract infectio us disease 66517676 Completed 201701/19/2018 Problem Code: N39.0; Problem Code Type: ICD-10; RENATA mazariegos, [employer] 2 13:49:15 Urinary tract infectio us disease 80113232 Completed 201810/06/2022 Problem Code: N39.0; Problem Code Type: ICD-10; RENATA MARCELINA [employer], [employer] 2 13:49:15 Dysuria 31532995 Completed 201810/06/2022 Problem Code: R30.0; Problem Code Type: ICD-10; RENATA mazariegos, [employer] 2 13:49:15 Traumati c rupture of lumbar interver tebral disc 846547352 Completed 201707/13/2018 Problem Code: S33.0XXA ; Problem Code Type: ICD-10; Not Available [facility] 2 21:24:33 Candidal vulvovag initis 80694935 Completed 201701/19/2018 Problem Code: 112.1; Problem Code Type: ICD-9; Not Available [facility] 2 21:24:33 Single major depressi ve episode, mild Completed 201604/26/2017 Problem Code: 296.21; Problem Code Type: ICD-9; Not Available [facility] 21:24:33 Lumbar sprain 454536150 Completed 201707/13/2018 Problem Code: 847.2; Problem Code Type: ICD-9; Not Available [facility] 21:24:34 Screenin yvonne mammogra phy Completed 201810/06/2022 Problem Code: Z12.31; Problem Code Type: ICD-10; [facility] 13:49:15 Body mass index 30+ - obesity 844260562 Active 2018 Problem Code: Z68.35; Problem Code Type: ICD-10; Not Available [facility] 21:24:34 Problem Notes None recorded. Medical Equipment None Reported. Allergies Allergen ID Allergen Name Allergen Category Reaction Reaction Severity Criticality Documentation Date Start Date Code Code System Note Provider Name and Address Organization Details Recorded Time 80163 Product containin g penicilli n (product) medicatio n Not available Not available Not available 07/01/2022 04736 8001 SNOMED RENATAIVAN HEWITT [employer] 13:48:56 Medications Name Sig Start Date Stop Date Status Note LastModified by Organization Details LastModified Time fluoxetine 40 mg capsule Take 1 capsule(s ) by mouth daily active Not Available Not Available No t Available promethazin e-DM 6.25 mg-15 mg/5 mL oral syrup take 5ml BY MOUTH every FOUR hours NEEDED, FOR cough active Not Available Not Available No t Available nystatin 100,000 unit/mL oral suspension Take 1 teaspoonf ul four times a day. 01/19 completed Not Available Not Available Not Available prednisone 10 mg tablet TAKE 6 TABLETS BY MOUTH ON DAY 1, THEN TAKE 5 TABLETS ON DAY 2, THEN TAKE 4 TABLETS ON DAY 3, THEN TAKE 3 TABLETS ON DAY 4, THEN TAKE 2 TABLETS ON DAY 5, THEN TAKE 1 TABLET ON DAY 6 10/06 completed Not Available Not Available Not Available doxycycline hyclate 100 mg capsule Take 1 capsule twice a day by oral route. 12/12 completed Not Available Not Available Not Available ipratropium 0.5 mg-albutero l 3 mg (2.5 mg base)/3 mL nebulizatio n soln Administe r 3 mL by nebulizat ion x 1 dose now 2024 active Not Available Not Available Not Avai lable albuterol sulfate 2.5 mg/3 mL (0.083 %) solution for nebulizatio n inhale the contents of 1 vial three times daily via nebulizer as needed active Not Available Not Available No t Available azithromyci n 250 mg tablet TAKE 2 TABLETS BY MOUTH ON DAY 1, THEN TAKE 1 TABLET DAILY ON DAYS 2-5 active Not Available Not Available No t Available ibuprofen 800 mg tablet TAKE ONE TABLET BY MOUTH THREE TIMES DAILY NEEDED active Not Available Not Available No t Available tizanidine 4 mg tablet 1 po q hs 07/13 completed Not Available Not Available Not Available fluconazole 150 mg tablet take 1 tablet (150 mg) by oral route once today and another in 3 days 10/06 completed Not Available Not Available Not Available benzonatate 200 mg capsule TAKE ONE CAPSULE BY MOUTH THREE TIMES DAILY NEEDED FOR COUGH active Not Available Not Available No t Available prednisone 20 mg tablet TAKE ONE TABLET BY MOUTH THREE TIMES DAILY FOR THREE DAYS active Not Available Not Available No t Available prednisone 5 mg tablet 7pills po today and decrease by one q day 10/08 completed Not Available Not Available Not Available hydroxyzine pamoate 50 mg capsule Take 1 capsule(s ) by mouth tid 12/10 completed Not Available Not Available Not Available dextrometho kassie enesin 10 mg-100 mg/5 mL oral syrup Take 1 teaspoon by mouth q4h prn for cough 10/08 completed Not Available Not Available Not Available sulfamethox azole 800 mg-trimetho prim 160 mg tablet take 1 tablet by oral route every 12 hours for 10 days 10/06 completed Not Available Not Available Not Available omeprazole 40 mg capsule,del ayed release TAKE ONE CAPSULE BY MOUTH EVERY DAY active Not Available Not Available No t Available Depo-Medrol 80 mg/mL suspension for injection Administe r 80 mg IM x 1 dose 12/12 completed Not Available Not Available Not Available prednisone 10 mg tablets in a dose pack take by mouth as directed on pack 09/27 completed Not Available Not Available Not Available Diflucan 100 mg tablet one pill today, in 5 days and after finishing the antibioti c 01/19 completed Not Available Not Available Not Available gabapentin 800 mg tablet 1pill po QID 08/09 completed Not Available Not Available Not Available doxycycline monohydrate 100 mg capsule TAKE ONE CAPSULE BY MOUTH TWICE DAILY FOR 10 DAYS 03/28 completed Not Available Not Available Not Available ibuprofen 600 mg tablet 1 po tid 02/18 completed Not Available Not Available Not Available levofloxaci n 500 mg tablet 10/06 completed Not Available Not Available Not Available Vitamin D2 1,250 mcg (50,000 unit) capsule TAKE ONE CAPSULE BY MOUTH every WEEK FOR 90 DAYS, for vitamin d active Not Available Not Available No t Available Naprosyn 500 mg tablet Take 1 tablet(s) by mouth bid 07/13 completed Not Available Not Available Not Available hydroxyzine HCl 10 mg tablet HYDROXYZ HCL TAB 10MG 10/06 completed Not Available Not Available Not Available cefdinir 300 mg capsule TAKE ONE CAPSULE BY MOUTH EVERY TWELVE HOURS FOR 7 DAYS 12/26 completed Not Available Not Available Not Available fluoxetine 20 mg capsule TAKE ONE CAPSULE BY MOUTH EVERY DAY active Not Available Not Available No t Available doxycycline hyclate 100 mg tablet TAKE 1 TABLET BY MOUTH TWICE DAILY FOR 7 DAYS 10/06 completed Not Available Not Available Not Available Ventolin HFA 90 mcg/actuati on aerosol inhaler inahle ONE TO TWO puffs by MOUTH every SIX hours as needed FOR wheezing active Not Available Not Available No t Available ropinirole 4 mg tablet Take 1 tablet every day by oral route at bedtime for 90 days. 09/27 completed Not Available Not Available Not Available hydroxyzine pamoate 25 mg capsule Take 1 capsule twice a day by oral route as needed, for anxiety. 2024 active Not Available Not Available Not Avai lable rosuvastati n 40 mg tablet Take 1 tablet every day by oral route at bedtime. 2024 active Not Available Not Available Not Avai lable Albuterol Sulfate HFA ALBUTEROL AER HFA 10/06 completed Not Available Not Available Not Available Breo Ellipta 100 mcg-25 mcg/dose powder for inhalation one puff a day 07/30 completed Not Available Not Available Not Available Bevespi Aerosphere 9 mcg-4.8 mcg HFA aerosol inhaler INHALE TWO PUFFS BY MOUTH TWICE DAILY 12/26 completed Not Available Not Available Not Available Trelegy Ellipta 100 mcg-62.5 mcg-25 mcg powder for inhalation Inhale 1 puff every day by inhalatio n route. 2024 active Not Available Not Available Not Avai lable Flowflex COVID-19 Antigen Home Test kit 10/06 completed Not Available Not Available Not Available Airsupra 90 mcg-80 mcg/actuati on HFA aerosol inhaler INHALE TWO INHALATIO NS BY MOUTH EVERY FOUR HOURS NEEDED active Not Available Not Available No t Available Vitals Date Recorded Body height Body mass index (BMI) Body weight Body temperature Heart rate Oxygen saturation Oxygen saturation in Arterial blood by Pulse oximetry Systolic blood pressure Diastolic blood pressure Provider Name and Address Organization Details Last Updated DateTime 5 162.56 cm 36.7 kg/m2 57476.7 7 g 97.7 [degF] 101 /min 90 % 90 % 115 mm[Hg] 81 mm[Hg] [employer] 5 11:45:31 Date Recorded Body height Body mass index (BMI) Body weight Heart rate Oxygen saturation Oxygen saturation in Arterial blood by Pulse oximetry Systolic blood pressure Diastolic blood pressure Provider Name and Address Organization Details Last Updated DateTime 5 162.56 cm 36.7 kg/m2 85948.7 7 g 82 /min 95 % 95 % 115 mm[Hg] 81 mm[Hg] Ellen [employer] 5 13:12:33 Date Recorded Body height Oxygen saturation Oxygen saturation in Arterial blood by Pulse oximetry Heart rate Body mass index (BMI) Body weight Systolic blood pressure Diastolic blood pressure Provider Name and Address Organization Details Last Updated DateTime 5 162.56 cm 93 % 93 % 80 /min 36 kg/m2 97406.4 g 121 mm[Hg] 83 mm[Hg] ROMMEL JEONG [employer] 5 13:33:13 Date Recorded Body height Body mass index (BMI) Body weight Heart rate Oxygen saturation Oxygen saturation in Arterial blood by Pulse oximetry Systolic blood pressure Diastolic blood pressure Provider Name and Address Organization Details Last Updated DateTime 5 162.56 cm 34.8 kg/m2 94724.2 5 g 83 /min 90 % 90 % 112 mm[Hg] 80 mm[Hg] Ellen Porras [employer] 5 13:09:16 Date Recorded Oxygen saturation Oxygen saturation in Arterial blood by Pulse oximetry Provider Name and Address Organization Details Last Updated DateTime 10/20/2024 90 % 90 % Juanita Leung NP [address] [place] [address], [address], [employer]. 10/20/2024 14:57:28 Date Recorded Body height Body mass index (BMI) Body weight Body temperature Heart rate Oxygen saturation Oxygen saturation in Arterial blood by Pulse oximetry Systolic blood pressure Diastolic blood pressure Provider Name and Address Organization Details Last Updated DateTime 4 162.56 cm 37.3 kg/m2 99506.6 4 g 99.5 [degF] 104 /min 86 % 86 % 129 mm[Hg] 83 mm[Hg] Carleypalmer Clark [employer]. 4 14:12:28 Social History Question Answer Notes LastModified by Organizat ion Details LastModified Time Tobacco Smoking Status Current Every Day Smoker RENATA [email or web address], [employer]. 10/06/2022 13:50:09 Do You Have An Advance Directive? No [email or web address] Information n ot available 10/06/2022 Is Your Home Air Conditioned? Yes [email or web address] Information not available 10/06/2022 Do You Wear A Helmet When Biking? No [email or web address] Information not available 10/06/2022 Are You Blind Or Do You Have Difficulty Seeing? Yes [email or web address] Information n ot available 10/06/2022 What Is Your Level Of Caffeine Consumption? Moderate [email or web address] Information not available 10/06/2022 In The 14 Days Before Symptom Onset, Have You Had Close Contact With A Laboratory-confirm ed COVID-19 While That Case Was Ill? No [email or web address] Information n ot available 10/06/2022 In The 14 Days Before Symptom Onset, Have You Had Close Contact With A Person Who Is Under Investigation For COVID-19 While That Person Was Ill? No Information not available 10/06/2022 Have You Been To An Area Known To Be High Risk For COVID-19? No [email or web address] Information not available 10/06/2022 Are You Deaf Or Do You Have Serious Difficulty Hearing? No [email or web address] Information not available 10/06/2022 What Type Of Diet Are You Following? REGULAR [email or web address] Information n ot available 10/06/2022 Have There Been Any Changes To Your Family Or Social Situation? No [email or web address] Information no t available 10/06/2022 Are There Any Guns Present In Your Home? No [email or web address] Information not available 10/06/2022 Which Of Your Hands Is Dominant? Right [email or web address] Information n ot available 10/06/2022 What Is Your Home Situation? Other [email or web address] Information not available 10/06/2022 Do You Have A Medical Power Of Junction Maker? No [email or web address] Information not available 10/06/2022 What Was The Date Of Your Most Recent Tobacco Screening? 03/28/2025 Information not available 03/28/2025 What Is Your Current Pack Years? 10packyears [email or web address] Information not available 10/06/2022 Do You Have Any Pets? No [email or web address] Information not available 10/06/2022 What Is Your Relationship Status? [email or web address] Information not available 10/06/2022 Have You Repeated Any Grades? Yes [email or web address] Information not available 10/06/2022 Do You Use Your Seat Belt Or Car Seat Routinely? Yes [email or web address] Information not available 10/06/2022 Are You Sexually Active? No [email or web address] Information not available 10/06/2022 Do You Have Any Siblings? Yes [email or web address] Information not available 10/06/2022 Do You Have Smoke And Carbon Monoxide Detectors In Your Home? Yes [email or web address] Information not available 10/06/2022 At What Age Did You Start Smoking Tobacco? 13 [email or web address] Information not available 10/06/2022 Are You Passively Exposed To Smoke? Yes [email or web address] Information no t available 10/06/2022 Are There Any Smokers In Your House? Yes [email or web address] Information not available 10/06/2022 How Much Tobacco Do You Smoke? 1 PPD [email or web address] Information not available 10/06/2022 Do You Participate In Social Media? Yes [email or web address] Information not available 06/29/2024 Do You Use Sunscreen Routinely? No Information not available 10/06/2022 Has Tobacco Cessation Counseling Been Provided? Yes [email or web address] Information not available 10/06/2022 On What Date Was Tobacco Cessation Counseling Provided? 03/28/2025 Information not available 03/28/2025 How Many Years Have You Smoked Tobacco? 35 [email or web address] Information not available 10/06/2022 Have You Recently Traveled Abroad? No [email or web address] Information not available 10/06/2022 Do You Have Difficulty Walking Or Climbing Stairs? Yes [email or web address] Information not available 10/06/2022 Are You Currently In School? No [email or web address] Information not available 10/06/2022 Do You Have Any Dietary Restrictions? No [email or web address] Information not available 06/29/2024 Sex: Female Functional Status Question Answer Note LastModified by Organizat ion Details LastModified Time Do you use any illicit or recreational drugs? No [email or web address] Information not available 10/06/2022 Do you or have you ever used any other forms of tobacco or nicotine? No [email or web address] Information not available 06/29/2024 Are you currently employed? No [email or web address] Information not available 10/06/2022 Do you have transportation difficulties? No [email or web address] Information not available 10/06/2022 Are you able to walk? YESWOREST [email or web address] Information not available 10/06/2022 Do you have difficulty doing errands alone? No [email or web address] Information not available 10/06/2022 Are you able to care for yourself? Yes Information not available 10/06/2022 Do you have difficulty dressing or bathing? No [email or web address] Information not available 10/06/2022 Mental Status Question Answer Note LastModified by Organizat ion Details LastModified Time Do you feel stressed (tense, restless, nervous, or anxious, or unable to sleep at night)? [id number] [email or web address] Information not available 10/06/2022 Do you have difficulty concentrating, remembering or making decisions? No [email or web address] Information no t available 10/06/2022 Are you or have you been involved with bullying? No [email or web address] Information not available 10/06/2022 Family History Relationship Description Onset Age of this Age Resolved Age Notes LastModified by Organization Details LastModified Time Unspecified Relation Family history of alcoholism [email or web address] Not available 09/25 14:10:28 Mother Depressive disorder [email or web address] Not available 10/06 14:10:28 Mother Anxiety disorder [email or web address] Not available 10/06 14:10:28 Father Depressive disorder [email or web address] Not available 10/06 14:10:28 Father Anxiety disorder [email or web address] Not available 10/06 14:10:28 Brother Depressive disorder [email or web address] Not available 10/06 14:10:28 Brother Anxiety disorder [email or web address] Not available 10/06 14:10:28 Sister Depressive disorder [email or web address] Not available 10/06 14:10:28 Sister Anxiety disorder [email or web address] Not available 10/06 14:10:28 Medical History Condition Response Anxiety Disorder Y Hospitalizations N Emergency room visit since last appointm ent. N COPD Y Gynecological History Statement/Question Response Menses Monthly N HPV Vaccine N Date of Last Pap Smear Most Recent Mammogram Age at First Child 15 Obstetrics History GPAL:G 0 P 0 0 0 0 Past Encounters Encounter ID Performer Location Encounter Start Date Encounter Closed Date Diagnosis/Indication Diagnosis SNOMED-CT Code Diagnosis ICD10 Code Diagnosis Note [id number] Megan Pena APRN [address] [address] 10/06/2022 13:31:43 10/06/2022 14:32:58 Anxiety disorder F41.9 Gastroesop hageal reflux disease without esophagitis 350478985 K21.9 Body mass index 30+ - obesity 379554469 Z68.41 Abdominal pain 04472448 R10.9 Fatigue 80113822 R53.83 Hyperlipidemia 14690693 E78.5 Chronic ob structive pulmonary disease 80715632 J44.9 [id number] [place] [phone] 01/13/2023 11:28:08 01/13/2023 12:14:14 Chronic obstructive pulmonary disease 64751523 J44.9 Anxiety disorder F41.9 Gastroesop hageal reflux disease without esophagitis 567407366 K21.9 Hyperlipidemia 84793030 E78.5 Body mass index 40+ - severely obese 118385286 Z68.41 Screening mammography 24 240729 Z12.31 [id number] [place] [phone] 04/23/2023 16:15:01 04/23/2023 17:06:17 Chronic obstructive pulmonary disease 81749515 J44.9 Anxiety disorder F41.9 Gastroesop hageal reflux disease without esophagitis 394372846 K21.9 Hyperlipidemia 81944667 E78.5 Pain of mu ltiple joints 46842088 M25.50 Body mass index 30+ - obesity 657885476 Z68.41 [id number] [place] [id number] 07/30/2023 15:53:40 07/30/2023 16:43:13 Chronic obstructive pulmonary disease 32913027 J44.9 Anxiety disorder F41.9 Pain of mu ltiple joints 57900015 M25.50 Gastroesop hageal reflux disease without esophagitis 548446972 K21.9 Hyperlipidemia 71100269 E78.5 Body mass index 40+ - severely obese 436422662 Z68.41 [id number] Pena[address] [address] 12/07/2023 13:31:48 12/07/2023 14:25:19 Chronic obstructive pulmonary disease 09674770 J44.9 Anxiety disorder 06 F41.9 Pain of mu ltiple joints 12176305 M25.50 Gastroesop hageal reflux disease without esophagitis 096933446 K21.9 Hyperlipidemia 74022747 E78.5 Fatigue 17299589 R53.83 Vitamin D deficiency 347 04414 E55.9 Body mass index 40+ - severely obese 104346263 Z68.41 [id number] Megan Pena [place] [id number] 0 02/25/2024 09:09:17 02/25/2024 09:59:24 Acute bronchitis 47832219 J20.9 Chronic ob structive pulmonary disease 59871586 J44.9 Anxiety disorder F41.9 Pain of mu ltiple joints 41760295 M25.50 Gastroesop hageal reflux disease without esophagitis 707723483 K21.9 Hyperlipidemia 57182284 E78.5 Vitamin D deficiency 347 64570 E55.9 Body mass index 30+ - obesity 452420911 Z68.41 [id number] Megan Pena [place] [id number] 0 06/09/2024 08:50:51 06/09/2024 09:43:51 Renewal of prescription 708729164 Z76.0 Restless legs 91968537 G 25.81 Chronic ob structive pulmonary disease 40799462 J44.9 Anxiety disorder F41.9 Pain of mu ltiple joints 04486335 M25.50 Gastroesop hageal reflux disease without esophagitis 888339698 K21.9 Hyperlipidemia 20660256 E78.5 Vitamin D deficiency 347 35864 E55.9 Body mass index 30+ - obesity 846413431 Z68.41 [id number] Juanita Leung NP [place] [address] 0 06/29/2024 09:04:24 06/29/2024 09:41:34 Body mass index 30+ - obesity 631888390 Z68.39 Acute exac erbation of chronic obstructive pulmonary disease 866917951 J44.1 Screening for malignant neoplasm of colon 920580902 Z12.11 Screening mammography 24 159346 Z12.31 [id number] [place] [address] 0 09/27/2024 14:24:22 09/27/2024 15:00:04 Chronic obstructive pulmonary disease 21043285 J44.9 Smoking cessation encouraged . Anxiety disorder 06 F41.9 Increase hydroxyzin e RX to BID prn anxiety. Vitamin D deficiency 347 93764 E55.9 Diabetes m ellitus screening 503593300 Z13.1 Gastroesop hageal reflux disease without esophagitis 032869487 K21.9 Hyperlipidemia 97378514 E78.5 Tobacco de pendence caused by cigarettes 8521678349 8079913 F17.210 Body mass index 30+ - obesity 066719447 Z68.38 [id number] Juanita Leung, [place] [address] 10/20/2024 13:56:59 10/20/2024 15:09:18 Fever 447250859 R50.9 Chronic ob structive pulmonary disease 19732965 J44.9 Acute exac erbation of chronic obstructive pulmonary disease 975354722 J44.1 [id number] [place] [address] 0 12/12/2024 11:31:10 12/12/2024 12:00:08 Acute bronchitis 00138224 J20.9 Body mass index 30+ - obesity 303142657 Z68.41 Nicotine dependence 5629 4008 F17.223 [id number] Megan Jean [place] [id number] 0 12/26/2024 12:20:12 12/26/2024 13:22:46 Chronic obstructive pulmonary disease 19377215 J44.9 Anxiety disorder F41.9 Pain of mu ltiple joints 16722987 M25.50 Gastroesop hageal reflux disease without esophagitis 660577634 K21.9 Hyperlipidemia 63196533 E78.5 Body mass index 30+ - obesity 590326279 Z68.41 [id number] [place] [address] 0 03/07/2025 13:18:15 03/07/2025 13:45:06 Acute exacerbation of chronic obstructive pulmonary disease 897883846 J44.1 Snoring 46113923 R06.83 Body mass index 30+ - obesity 329877845 Z68.36 [id number] [place] [address] 03/28/2025 12:27:25 03/28/2025 13:29:37 Chronic obstructive pulmonary disease 25307645 J44.9 Anxiety disorder 8471065 06 F41.9 Pain of mu ltiple joints 31631797 M25.50 Gastroesop hageal reflux disease without esophagitis 582575852 K21.9 Hyperlipidemia 65917661 E78.5 Fatigue 28490172 R53.83 Hyperglycemia 12954970 R 73.9 Vitamin D deficiency 347 70881 E55.9 Cobalamin deficiency 190 967484 E53.8 Screening for malignant neoplasm of lung 859970170 Z12.2 Body mass index 30+ - obesity 508321150 Z68.34 Health Concerns Section Related Observation LastModified by Organization Detai ls LastModified Time None Recorded Concern Status LastModified by Organization Details LastModified Time None Recorded Advance Directives Directive N: Payers Insurance Date Sequence Insurance Name Policy Number Policy [place] Covered Member ID [place] Member ID Guarantor Name 04/17/2025 SLIDING FEE SCHEDULE - DISCOUNT Esthela Stamper 03/26/2025 [id number] Esthela Stamper [id number] Esthela Stamper 04/03/2025 1 [facility] (MEDICAID O) Esthela Stamper [id number] Esthela Stamper Notes Date Note Type Note Provider Name and Address Organization Details Recorded Time 10/20/2024 text/html Patient presents for cough, shortness of breath x 1 week. She has also had body aches and fatigue for the last few days. Using albuterol inhaler every 4 hours for the last few days. Non-productive cough. States shortness of breath is not as bad as it has been in the past but the body aches are the worst. Juanita Leung NP [address] [place], [address], [employer]. 10/20/2024 15:48:36 12/12/2024 text/html 49 year old celeste dominguez presents with cough and chest congestion x 1 week. States last week she felt chills, body aches, lung pain and and increased coughing. States symptoms improving but still coughing up green mucus. Has mild otalgia and sore throat today. + ill exposures over the past few weeks. States she has used inhalers and nebs more frequently which have helped SOA. Lungs course throughout. pt admits to continued smoking. will plan to treat with abx. To return for worsening symptoms for cxr. pt agree with plan Megan Pena APRN [address] [place], [address], [employer]. 12/12/2024 12:38:13 12/26/2024 text/html 49 year old celeste dominguez presents for COPD f/u. Denies acute complaints at this time. States she taking all medication, excluding vit D, as prescribed. States coughing has improved. Lungs coarse but clears with cough today. Will refill medication. pt agreesStates she hasnt started taking vit D since prescribed. She has 2 full bottles at home. She has noticed since september she just feels blah . encouraged her to start once weekly vit d to improve energy levels. pt agrees. she also request to increase depression medication to help her feel better. Will increase but again advised her to take vit D. pt agrees Megan Pena APRN [address] [place], [address], [employer]. 12/26/2024 16:16:21 03/07/2025 text/html pt here today wi th c/o cough, congestion and wheezing for the last few days. pt declines swabs today. on exam, left ear red, throat with thick clear drainage, lungs decreased with I/E wheezing. i will order cough med, steroid, and abx. educated pt on new meds. pt voiced understanding. pt states that her wheezing is getting bad at night that her daughter will wake up and make sure she is okay. pt states that she has day time sleepiness. i am going to order a sleep study. Megan Pena APRN [address] [facility], [place], [address], [facility], [employer]. 03/07/2025 14:03:22 03/28/2025 text/html pt here today fo r medication refills. pt states shes doing well on current medication regime with no new complaints today. pt does state that she has not done the cologuard that was sent to her house a long time ago. again explained to pt the simple process. pt states that she will do it. pt is agreeable to do a ldct. pt states that she has been using the neb machine more often and she has also been doing the albuterol inhaler every morning and every night or she just cannot breathe in the mornings. pt admits to smoking cigs. on exam, pt lungs are wheezy and coarse throughout. i am pt has had bevespi and breo on her med list but couldnt remember if she tried it or if the insurance denied. today i am going to order airsupra and trelegy. educated pt on new meds. pt voiced understanding. Megan Pena APRN [address] [facility], [place], [address], [facility] [employer] 03/28/2025 13:49:53 OBGyn Episode No OBEpisode recorded.
--- OUTSIDE RECORDS SUMMARY | 2025-04-19 14:42 | XMS_ITS | Continuity of Care Document ---
Author Organization [employer] [facility] Address [address] [place] [id number] Assessment No assessment recorded. Plan of Treatment Reminders Order Date Submit Date Provider Last Modified By Organization Details Last Modified Time Details Appointments SAME DAY ACCESS 2024 10:15A M Transporter Not available Not available Not available FOLLOW UP 15 2024 10:45A M Curt Pena APRN Not available Not available Not available Lab lipid panel, serum 2024 025 [facility]), [address] [place], [address], 03/29/2025 08:12:14 CMP, serum or plasma 2024 025 [facility]), [address] [place], [address], 03/29/2025 08:12:13 CBC w/ auto diff 2024 025 [facility]), [address] [place], [address], 03/29/2025 08:12:13 TSH + free T4, serum 2024 025 [facility], [address] [place], [address], 03/29/2025 08:12:12 HbA1c (hemog lobin A1c), blood 2024 025 [facility] [address] [place] [address], [place], [address], 03/29/2025 08:12:15 vitami n D, 25-hyd juve, total, serum 2024 025 [facility] [address] [place], [address], 03/29/2025 08:12:15 cobala min and folate panel, serum 2024 025 [facility] [address] [place], [address], 03/29/2025 08:12:14 Referral None record ed. Procedures None record ed. Surgeries None record ed. Imaging LDCT, chest, for lung cancer screen ing - first avail [address] ([facility]), [address], [place], [address], 04/18/2025 10:10:24 Medication Orders fluoxe gia 20 mg capsul e 2024 025 [facility], [address] [place] [address], [address], 03/28/2025 16:31:21 fluoxe gia 40 mg capsul e 2024 025 [facility], [address] [place] [address], [address], 03/28/2025 16:31:23 hydrox yzine pamoat e 25 mg capsul e 2024 025 [facility], [address] [place] [address], [address], 03/28/2025 14:05:46 albute rol sulfat e 2.5 mg/3 mL (0.083 %) soluti on for nebuli zation 2024 025 [facility], [address] [place] [address], [address], 03/28/2025 16:31:24 ipratr opium 0.5 mg-alb uterol 3 mg (2.5 mg base)/ 3 mL nebuli zation soln 2024 025 [email or web address] Not available 03/30/2025 14:24:26 Treleg y Ellipt a 100 mcg-62 .5 mcg-25 mcg powder for inhala tion 2024 025 [facility], [address] [place] [address], [address], 03/28/2025 13:51:36 Airsup ra 90 mcg-80 mcg/ac tuatio n HFA aeroso l inhale r 2024 025 [facility], [address] [place] [address], [address], 04/01/2025 10:57:27 rosuva statin 40 mg tablet 2024 025 [facility], [address] [place] [address], [address], 03/28/2025 14:05:46 omepra zole 40 mg capsul e,micah yed releas e 2024 025 [facility], [address] [place] [address], [address], 03/28/2025 16:31:23 ibupro fen 800 mg tablet 2024 025 [facility], [address] [place] [address], [address], 03/28/2025 16:31:22 Patient TargetsNo targets recorded. Patient InstructionsNo instructions recorded. Reason for Referral None Reported. Results Created Date Observation Date Name Description Value Unit Range Abnormal Flag Note LastModifiedBy Organization Detail LastModifiedTime 06/06/20 25 XR, chest , 2 view No observ ation record ed. [email or web address] [facility] - [address], [place], [address], 03/31/2025 11:35:04 Result Notes None recorded. Problems Name Problem SNOMED Code Status Onset Date Resolution Date Notes Provider Name and Address Organization Details Recorded Time Chronic obstruct jonathan pulmonar y disease 46911529 Active 2023 Juanita Leung NP [address] [place] [address], [address] [place] [address] , [employer] 4 09:19:01 Acute exacerba tion of chronic obstruct jonathan pulmonar y disease 328557780 Active 2023 Juanita Leung NP [address] [place] [address], [address] [place] [address] , [employer] 4 09:27:25 Prediabe kim 005582924 Active 2023 Yolanda Morales APRN [address] [place] [address], [address] [place] [address] , [employer] 4 20:26:23 Vitamin D deficien cy 00487325 Active 2023 Yolanda Morales APRN [address] [place] [address], [address] [place] [address] , [employer] 4 20:26:24 Fever 792983471 Active 2023 Juanita Leung NP [address] [place] [address], [address] [place] [address] , [employer] 4 14:34:39 Persiste nt cough 469440788 Active 2024 Ellen mazariegos, [employer] 5 14:54:22 Candidia sis of mouth 39937032 Completed 201701/19/2018 Problem Code: B37.0; Problem Code Type: ICD-10; Not Available [facility] 2 21:24:32 Candidia sis of mouth 73211510 Completed 201604/26/2017 Problem Code: B37.0; Problem Code Type: ICD-10; Not Available [facility] 2 21:24:32 Candidia sis of vulva 2337239 Completed 201701/19/2018 RENATA MARCELINA [employer] 2 13:49:15 Candidia sis of vulva 9013667 Completed 201810/06/2022 RENATA MARCELINA [employer] 2 13:49:15 Nicotine dependen ce 48317426 Active 2018 Problem Code: F17.200; Problem Code Type: ICD-10; Not Available [facility] 2 21:24:32 Mild major depressi on, single episode 70136430 Completed 201604/26/2017 Problem Code: F32.0; Problem Code Type: ICD-10; Not Available [facility] 2 21:24:32 Restless legs 37983974 Completed 201605/14/2018 Problem Code: G25.81; Problem Code Type: ICD-10; Not Available [facility] 2 21:24:32 Acute bronchit is 01899314 Completed 201710/08/2018 Problem Code: J20.8; Problem Code Type: ICD-10; Not Available [facility] 2 21:24:32 Low back pain 715542403 Completed 201710/06/2022 Problem Code: M54.5; Problem Code Type: ICD-10; RENATA HEWITT [employer] 2 13:49:15 Urinary tract infectio us disease 58945607 Completed 201701/19/2018 Problem Code: N39.0; Problem Code Type: ICD-10; RENATA MARCELINA [employer] 2 13:49:15 Urinary tract infectio us disease 78068399 Completed 201810/06/2022 Problem Code: N39.0; Problem Code Type: ICD-10; RENATA MARCELINA [employer] 13:49:15 Dysuria 79067779 Completed 201810/06/2022 Problem Code: R30.0; Problem Code Type: ICD-10; RENATA HEWITT [employer] 13:49:15 Traumati c rupture of lumbar interver tebral disc 927846070 Completed 201707/13/2018 Problem Code: S33.0XXA ; Problem Code Type: ICD-10; Not Available [facility] 21:24:33 Candidal vulvovag initis 59454332 Completed 201701/19/2018 Problem Code: 112.1; Problem Code Type: ICD-9; Not Available [facility] 21:24:33 Single major depressi ve episode, mild Completed 201604/26/2017 Problem Code: 296.21; Problem Code Type: ICD-9; Not Available [facility] 21:24:33 Lumbar sprain 654974058 Completed 201707/13/2018 Problem Code: 847.2; Problem Code Type: ICD-9; Not Available [facility] 21:24:34 Screenin g mammogra phy Completed 201810/06/2022 Problem Code: Z12.31; Problem Code Type: ICD-10; RENATA HEWITT [employer] 13:49:15 Body mass index 30+ - obesity 471066086 Active 2018 Problem Code: Z68.35; Problem Code Type: ICD-10; Not Available [facility] 21:24:34 Problem Notes None recorded. Medical Equipment None Reported. Allergies Allergen ID Allergen Name Allergen Category Reaction Reaction Severity Criticality Documentation Date Start Date Code Code System Note Provider Name and Address Organization Details Recorded Time 46702 Product containin g penicilli n (product) medicatio n Not available Not available Not available 07/01/2022 77179 8008 SNOMED RENATA HEWITT [employer] 12/12/202 2 13:48:56 Medications Name Sig Start Date Stop [...] Not Available Not Available Not Available dextrometho rphan-guaif enesin 10 mg-100 mg/5 mL oral syrup [...] Updated DateTime 5 162.56 cm 34.8 kg/m2 51285.2 5 g 83 /min 90 % 90 % 112 mm[Hg] 80 mm[Hg] Ellen Porras [employer] 13:09:16 Social History Question Answer Notes LastModified by Organizat ion Details LastModified Time Tobacco Smoking Status Current Every Day Smoker RENATA HEWITT [employer] 10/06/2022 13:50:09 Do You Have An Advance Directive? No [email or web address] Information n ot available 10/06/2022 Is Your Home Air Conditioned? Yes [email or web address] Information not available 10/06/2022 Do You Wear A Helmet When Biking? No [email or web address] Information not available 10/06/2022 Are You Blind Or Do You Have Difficulty Seeing? Yes [email or web address] Information n ot available 10/06/2022 What Is Your Level Of Caffeine Consumption? Moderate [email or web address] Information not available 10/06/2022 In The 14 Days Before Symptom Onset, Have You Had Close Contact With A Laboratory-confirm ed COVID-19 While That Case Was Ill? No [email or web address] Information n ot available 10/06/2022 In The 14 Days Before Symptom Onset, Have You Had Close Contact With A Person Who Is Under Investigation For COVID-19 While That Person Was Ill? No eluigbyt47 Information not available 10/06/2022 Have You Been To An Area Known To Be High Risk For COVID-19? No [email or web address] Information not available 10/06/2022 Are You Deaf Or Do You Have Serious Difficulty Hearing? No aahddptq48 Information not available 10/06/2022 What Type Of Diet Are You Following? REGULAR [email or web address] Information n ot available 10/06/2022 Have There Been Any Changes To Your Family Or Social Situation? No phsofrgx93 Information no t available 10/06/2022 Are There Any Guns Present In Your Home? No [email or web address] Information not available 10/06/2022 Which Of Your Hands Is Dominant? Right abxunjia83 Information n ot available 10/06/2022 What Is Your Home Situation? Other [email or web address] Information not available 10/06/2022 Do You Have A Medical Power Of Glass Bulb Silverer? No [email or web address] Information not available 10/06/2022 What Was The Date Of Your Most Recent Tobacco Screening? 03/28/2025 Information not available 03/28/2025 What Is Your Current Pack Years? 10packyears [email or web address] Information not available 10/06/2022 Do You Have Any Pets? No [email or web address] Information not available 10/06/2022 What Is Your Relationship Status? [email or web address] Information not available 10/06/2022 Have You Repeated Any Grades? Yes [email or web address] Information not available 10/06/2022 Do You Use Your Seat Belt Or Car Seat Routinely? Yes zkmulqiz32 Information not available 10/06/2022 Are You Sexually Active? No [email or web address] Information not available 10/06/2022 Do You Have Any Siblings? Yes [email or web address] Information not available 10/06/2022 Do You Have Smoke And Carbon Monoxide Detectors In Your Home? Yes [email or web address] Information not available 10/06/2022 At What Age Did You Start Smoking Tobacco? 13 Information not available 10/06/2022 Are You Passively Exposed To Smoke? Yes wmoeaiwz45 Information no t available 10/06/2022 Are There Any Smokers In Your House? Yes [email or web address] Information not available 10/06/2022 How Much Tobacco Do You Smoke? 1 PPD ecvykutt60 Information not available 10/06/2022 Do You Participate In Social Media? Yes [email or web address] Information not available 06/29/2024 Do You Use Sunscreen Routinely? No [email or web address] Information not available 10/06/2022 Has Tobacco Cessation Counseling Been Provided? Yes [email or web address] Information not available 10/06/2022 On What Date Was Tobacco Cessation Counseling Provided? 03/28/2025 Information not available 03/28/2025 How Many Years Have You Smoked Tobacco? 35 [email or web address] Information not available 10/06/2022 Have You Recently Traveled Abroad? No Information not available 10/06/2022 Do You Have Difficulty Walking Or Climbing Stairs? Yes elfdvsww83 Information not available 10/06/2022 Are You Currently In School? No Information not available 10/06/2022 Do You Have Any Dietary Restrictions? No [email or web address] Information not available 06/29/2024 Sex: Female Functional Status Question Answer Note LastModified by Organizat ion Details LastModified Time Do you use any illicit or recreational drugs? No lumybxnq01 Information not available 10/06/2022 Do you or have you ever used any other forms of tobacco or nicotine? No [email or web address] Information not available 06/29/2024 Are you currently employed? No iugzqbtp44 Information not available 10/06/2022 Do you have transportation difficulties? No vkchuvuc81 Information not available 10/06/2022 Are you able to walk? YESWOREST ongwxiae56 Information not available 10/06/2022 Do you have difficulty doing errands alone? No sufusrod08 Information not available 10/06/2022 Are you able to care for yourself? Yes Information not available 10/06/2022 Do you have difficulty dressing or bathing? No mcmqxrep59 Information not available 10/06/2022 Mental Status Question Answer Note LastModified by Organizat [employer] Details LastModified Time Do you feel stressed (tense, restless, nervous, or anxious, or unable to sleep at night)? TH90157-1 zbjcrteg35 Information not available 10/06/2022 Do you have difficulty concentrating, remembering or making decisions? No [email or web address] Information no t available 10/06/2022 Are you or have you been involved with bullying? No aysslpjv12 Information not available 10/06/2022 Family History Relationship Description Onset Age of this Age Resolved Age Notes LastModified by Organization Details LastModified Time Unspecified Relation Family history of alcoholism [email or web address] Not available 09/25 14:10:28 Mother Depressive disorder Not available 10/06 14:10:28 Mother Anxiety disorder Not available 10/06 14:10:28 Father Depressive disorder [email or web address] Not available 10/06 14:10:28 Father Anxiety disorder ajfxjabk79 Not available 10/06 14:10:28 Brother Depressive disorder xtmtzuft43 Not available 10/06 14:10:28 Brother Anxiety disorder [email or web address] Not available 10/06 14:10:28 Sister Depressive disorder [email or web address] Not available 10/06 14:10:28 Sister Anxiety disorder Not available 10/06 14:10:28 Medical History Condition Response Emergency room visit since last appointm ent. N COPD Y Anxiety Disorder Y Hospitalizations N Gynecological History Statement/Question Response Menses Monthly N HPV Vaccine N Date of Last Pap Smear Most Recent Mammogram Age at First Child 15 Obstetrics History GPAL:G 0 P 0 0 0 0 Past Encounters Encounter ID Performer Location Encounter Start Date Encounter Closed Date Diagnosis/Indication Diagnosis SNOMED-CT Code Diagnosis ICD10 Code Diagnosis [place] [id number] [place] [id number] 0 03/07/2025 13:18:15 03/07/2025 13:45:06 Acute exacerbation of chronic obstructive pulmonary disease 822071414 J44.1 Snoring 53783517 R06.83 Body mass index 30+ - obesity 255310258 Z68.36 [id number] [place] [id number] 0 03/28/2025 12:27:25 03/28/2025 13:29:37 Chronic obstructive pulmonary disease 96371960 J44.9 Anxiety disorder 3229833 06 F41.9 Pain of mu ltiple joints 16856789 M25.50 Gastroesop hageal reflux disease without esophagitis 020945780 K21.9 Hyperlipidemia 71033008 E78.5 Fatigue 41694365 R53.83 Hyperglycemia 53165594 R 73.9 Vitamin D deficiency 347 05100 E55.9 Cobalamin deficiency 190 649976 E53.8 Screening for malignant neoplasm of lung 528158198 Z12.2 Body mass index 30+ - obesity 546065685 Z68.34 Health Concerns Section Related Observation LastModified by Organization Detai ls LastModified Time None Recorded Concern Status LastModified by Organization Details LastModified Time None Recorded Payers Encounter Date Sequence Insurance Name Policy Number Policy Monteiro Covered Member ID Monteiro Member ID Guarantor Name 03/28/2025 SLIDING FEE SCHEDULE - DISCOUNT Esthela Stamper Notes Date Note Type Note Provider Name and Address Organization Details Recorded Time 03/28/2025 text/html pt here today fo r [...] pt voiced understanding. Megan Pena APRN [phone], [place], [address], [facility] [employer] 03/28/2025 13:49:53 OBGyn Episode No OBEpisode recorded.
--- OUTSIDE RECORDS SUMMARY | 2025-04-19 14:42 | XMS_ITS | Patient Health Record ---
Author Organization [facility] Address [address] [place] [address] Care Team Providers Care Diesel Engine Tester Name Role Phone HECTOR GARDNERSulma Primary Care Provider [phone] Reason For Referral No Information Medications Medication SIG (Take, Route, Fr equency, Duration) Notes Start Date End Date Status Symbicort 2 (two) puffs inhale 02/12/2016 10/26/18 00 Active Fluoxetine 1 (one) capsule(s) o 02/12/2016 900 Active Neurontin 1 (one) tablet(s) or 02/12/2016 10/26/18 00 Active Stiolto Respimat 2 (two) puffs inhale 02/12/2016 0 Active Vistaril 2 (two) capsule(s) o 02/12/2016 10/26/18 00 Active Plan Of Treatment No Information Insurance Providers Payer Name Payer Address Payer Phone Subscriber Number Group Number Insured Name Patient Relationship to Insured Coverage Start Date Coverage End Date [employer] [address] [place] [phone] [id number] Esthela Beth Self - patient is the insured
--- OUTSIDE RECORDS SUMMARY | 2025-04-19 14:42 | XMS_ITS | Continuity of Care Document ---
Author Organization [place] - [employer], [facility] Address [address] [place] [id number] Assessment No assessment recorded. Plan of Treatment Reminders Order Date Submit Date Provider Last Modified By Organization Details Last Modified Time Details Appointments SAME DAY ACCESS 2024 10:15A M Transporter Not available Not available Not available FOLLOW UP 15 2024 10:45A M Curt Pena APRN Not available Not available Not available Lab None record ed. Referral None record ed. Procedures None record ed. Surgeries None record ed. Imaging home sleep study [address] [facility], [address] [facility] [address], [address], 04/06/2025 10:23:12 Medication Orders benzon atate 200 mg capsul e 2024 025 [facility], [address] [place] [address], [id number], 03/07/2025 15:35:41 predni sone 20 mg tablet 2024 025 [facility], [address] [place] [address], [id number], 03/28/2025 14:20:47 doxycy yip monohy drate 100 mg capsul e 2024 025 [facility], [address] [place] [address], [address], 03/28/2025 14:20:46 Patient TargetsNo targets recorded. Patient InstructionsNo instructions recorded. Reason for Referral None Reported. Results Created Date Observation Date Name Description Value Unit Range Abnormal Flag Note LastModifiedBy Organization Detail LastModifiedTime 03/31/20 25 XR, chest , 2 view No observ ation record ed. [email or web address] [address], [place], [address], 03/31/2025 11:35:04 Result Notes None recorded. Problems Name Problem SNOMED Code Status Onset Date Resolution Date Notes Provider Name and Address Organization Details Recorded Time Chronic obstruct jonathan pulmonar y disease 35553714 Active 2023 Juanita Leung NP [address] [place] [address], [address] [place] [address] , [employer] 4 09:19:01 Acute exacerba tion of chronic obstruct jonathan pulmonar y disease 685445743 Active 2023 Juanita Leung NP [address] [place] [address], [address] [place] [address] , [employer] 4 09:27:25 Prediabe kim 881223440 Active 2023 Rommel Morales APRN [address] [place] [address], [address] [place] [address] , [employer] 4 20:26:23 Vitamin D deficien cy 66084045 Active 2023 Rommel Morales APRN [address] [place] [address], [address] [place] [address] , [employer] 4 20:26:24 Fever 376091573 Active 2023 Juanita Leung NP [address] [place] [address], [address] [place] [address] , [employer] 4 14:34:39 Persiste nt cough 844973404 Active 2024 Ellen mazariegos, [employer] 5 14:54:22 Candidia sis of mouth 44562105 Completed 201701/19/2018 Problem Code: B37.0; Problem Code Type: ICD-10; Not Available [facility] 2 21:24:32 Candidia sis of mouth 98338090 Completed 201604/26/2017 Problem Code: B37.0; Problem Code Type: ICD-10; Not Available [facility] 2 21:24:32 Candidia sis of vulva 8546238 Completed 201701/19/2018 RENATA mazariegos, [employer] 2 13:49:15 Candidia sis of vulva 6067567 Completed 201810/06/2022 RENATA mazariegos, [employer]. 13:49:15 Nicotine dependen ce 83415055 Active 2018 Problem Code: F17.200; Problem Code Type: ICD-10; Not Available [facility] 2 21:24:32 Mild major depressi on, single episode 69778200 Completed 201604/26/2017 Problem Code: F32.0; Problem Code Type: ICD-10; Not Available [facility] 2 21:24:32 Restless legs 27970781 Completed 201605/14/2018 Problem Code: G25.81; Problem Code Type: ICD-10; Not Available [facility] 2 21:24:32 Acute bronchit is 55902991 Completed 201710/08/2018 Problem Code: J20.8; Problem Code Type: ICD-10; Not Available [facility] 2 21:24:32 Low back pain 719856628 Completed 201710/06/2022 Problem Code: M54.5; Problem Code Type: ICD-10; RENATA mazariegos, [employer] 2 13:49:15 Urinary tract infectio us disease 09204010 Completed 201701/19/2018 Problem Code: N39.0; Problem Code Type: ICD-10; RENATA mazariegos [employer] 13:49:15 Urinary tract infectio us disease 10943762 Completed 201810/06/2022 Problem Code: N39.0; Problem Code Type: ICD-10; [facility] 13:49:15 Dysuria 47062413 Completed 201810/06/2022 Problem Code: R30.0; Problem Code Type: ICD-10; [facility]. 13:49:15 Traumati c rupture of lumbar interver tebral disc 773690401 Completed 201707/13/2018 Problem Code: S33.0XXA ; Problem Code Type: ICD-10; Not Available [facility] 21:24:33 Candidal vulvovag initis 44068566 Completed 201701/19/2018 Problem Code: 112.1; Problem Code Type: ICD-9; Not Available [facility] 2 21:24:33 Single major depressi ve episode, mild Completed 201604/26/2017 Problem Code: 296.21; Problem Code Type: ICD-9; Not Available [facility] 21:24:33 Lumbar sprain 109286329 Completed 201707/13/2018 Problem Code: 847.2; Problem Code Type: ICD-9; Not Available [facility] 2 21:24:34 Screenin g mammogra phy Completed 201810/06/2022 Problem Code: Z12.31; Problem Code Type: ICD-10; [facility] 2 13:49:15 Body mass index 30+ - obesity 600634486 Active 2018 Problem Code: Z68.35; Problem Code Type: ICD-10; Not Available [facility] 21:24:34 Problem Notes None recorded. Medical Equipment None Reported. Allergies Allergen ID Allergen Name Allergen Category Reaction Reaction Severity Criticality Documentation Date Start Date Code Code System Note Provider Name and Address Organization Details Recorded Time 83310 Product containin g penicilli n (product) medicatio n Not available Not available Not available 07/01/2022 44284 8001 SNOMED RENATAIVAN mazariegos [facility] [employer] [facility]. 13:48:56 Medications Name Sig Start Date Stop [...] t Available Vitals Date Recorded Body height Oxygen saturation Oxygen saturation in Arterial blood by Pulse oximetry Heart rate Body mass index (BMI) Body weight Systolic blood pressure Diastolic blood pressure Provider Name and Address Organization Details Last Updated DateTime 5 162.56 cm 93 % 93 % 80 /min 36 kg/m2 21833.4 g 121 mm[Hg] 83 mm[Hg] ROMMEL JEONG [employer] 5 13:33:13 Social History Question Answer Notes LastModified by Organizat ion Details LastModified Time Tobacco Smoking Status Current Every Day Smoker RENATA HEWITT [employer], [employer] 10/06/2022 13:50:09 Do You Have An Advance Directive? No Information n ot available 10/06/2022 Is Your Home Air Conditioned? Yes [email or web address] Information not available 10/06/2022 Do You Wear A Helmet When Biking? No [email or web address] Information not available 10/06/2022 Are You Blind Or Do You Have Difficulty Seeing? Yes [email or web address] Information n ot available 10/06/2022 What Is Your Level Of Caffeine Consumption? Moderate [email or web address] Information not available 10/06/2022 In The 14 Days Before Symptom Onset, Have You Had Close Contact With A Laboratory-confirm ed COVID-19 While That Case Was Ill? No [email or web address] Information n ot available 10/06/2022 In The 14 Days Before Symptom Onset, Have You Had Close Contact With A Person Who Is Under Investigation For COVID-19 While That Person Was Ill? No Information not available 10/06/2022 Have You Been To An Area Known To Be High Risk For COVID-19? No [email or web address] Information not available 10/06/2022 Are You Deaf Or Do You Have Serious Difficulty Hearing? No [email or web address] Information not available 10/06/2022 What Type Of Diet Are You Following? REGULAR [email or web address] Information n ot available 10/06/2022 Have There Been Any Changes To Your Family Or Social Situation? No [email or web address] Information no t available 10/06/2022 Are There Any Guns Present In Your Home? No Information not available 10/06/2022 Which Of Your Hands Is Dominant? Right [email or web address] Information n ot available 10/06/2022 What Is Your Home Situation? Other [email or web address] Information not available 10/06/2022 Do You Have A Medical Power Of Union Laborer? No [email or web address] Information not available 10/06/2022 What Was The Date Of Your Most Recent Tobacco Screening? 03/28/2025 Information not available 03/28/2025 What Is Your Current Pack Years? 10packyears ozlkynvo15 Information not available 10/06/2022 Do You Have Any Pets? No Information not available 10/06/2022 What Is Your Relationship Status? [email or web address] Information not available 10/06/2022 Have You Repeated Any Grades? Yes [email or web address] Information not available 10/06/2022 Do You Use Your Seat Belt Or Car Seat Routinely? Yes Information not available 10/06/2022 Are You Sexually Active? No [email or web address] Information not available 10/06/2022 Do You Have Any Siblings? Yes [email or web address] Information not available 10/06/2022 Do You Have Smoke And Carbon Monoxide Detectors In Your Home? Yes [email or web address] Information not available 10/06/2022 At What Age Did You Start Smoking Tobacco? 13 [email or web address] Information not available 10/06/2022 Are You Passively Exposed To Smoke? Yes [email or web address] Information no t available 10/06/2022 Are There Any Smokers In Your House? Yes [email or web address] Information not available 10/06/2022 How Much Tobacco Do You Smoke? 1 PPD [email or web address] Information not available 10/06/2022 Do You Participate In Social Media? Yes Information not available 06/29/2024 Do You Use Sunscreen Routinely? No [email or web address] Information not available 10/06/2022 Has Tobacco Cessation Counseling Been Provided? Yes [email or web address] Information not available 10/06/2022 On What Date Was Tobacco Cessation Counseling Provided? 03/28/2025 Information not available 03/28/2025 How Many Years Have You Smoked Tobacco? 35 [email or web address] Information not available 10/06/2022 Have You Recently Traveled Abroad? No [email or web address] Information not available 10/06/2022 Do You Have Difficulty Walking Or Climbing Stairs? Yes jlirmrda15 Information not available 10/06/2022 Are You Currently In School? No [email or web address] Information not available 10/06/2022 Do You Have Any Dietary Restrictions? No [email or web address] Information not available 06/29/2024 Sex: Female Functional Status Question Answer Note LastModified by Organizat ion Details LastModified Time Do you use any illicit or recreational drugs? No [email or web address] Information not available 10/06/2022 Do you or have you ever used any other forms of tobacco or nicotine? No [email or web address] Information not available 06/29/2024 Are you currently employed? No kvihwffu24 Information not available 10/06/2022 Do you have transportation difficulties? No iawoqxsk72 Information not available 10/06/2022 Are you able to walk? YESWOREST bsmtkhap53 Information not available 10/06/2022 Do you have difficulty doing errands alone? No [email or web address] Information not available 10/06/2022 Are you able to care for yourself? Yes zfrmtozv66 Information not available 10/06/2022 Do you have difficulty dressing or bathing? No [email or web address] Information not available 10/06/2022 Mental Status Question Answer Note LastModified by Organizat ion Details LastModified Time Do you feel stressed (tense, restless, nervous, or anxious, or unable to sleep at night)? [id number] [email or web address] Information not available 10/06/2022 Do you have difficulty concentrating, remembering or making decisions? No ayfwtvdg24 Information no t available 10/06/2022 Are you or have you been involved with bullying? No exivndya76 Information not available 10/06/2022 Family History Relationship Description Onset Age of this Age Resolved Age Notes LastModified by Organization Details LastModified Time Unspecified Relation Family history of alcoholism [email or web address] Not available 09/25 14:10:28 Mother Depressive disorder [email or web address] Not available 10/06 14:10:28 Mother Anxiety disorder Not available 10/06 14:10:28 Father Depressive disorder [email or web address] Not available 10/06 14:10:28 Father Anxiety disorder [email or web address] Not available 10/06 14:10:28 Brother Depressive disorder [email or web address] Not available 10/06 14:10:28 Brother Anxiety disorder Not available 10/06 14:10:28 Sister Depressive disorder [email or web address] Not available 10/06 14:10:28 Sister Anxiety disorder [email or web address] Not available 10/06 14:10:28 Medical History Condition [...] SNOMED-CT Code Diagnosis ICD10 Code Diagnosis Note [id number] Meganluz Pena [place] [address] 03/07/2025 13:18:15 03/07/2025 13:45:06 Acute exacerbation of chronic obstructive pulmonary disease 176617816 J44.1 Snoring 35269316 R06.83 Body mass index 30+ - obesity 402700948 Z68.36 Health Concerns Section Related Observation LastModified by Organization Detai ls LastModified Time None Recorded Concern Status LastModified by Organization Details LastModified Time None Recorded Payers Encounter Date Sequence Insurance Name Policy Number Policy Monteiro Covered Member ID Monteiro Member ID Guarantor Name 03/07/2025 1 [facility] (MEDICAID HMO) Esthela Stamper [id number] Esthela Stamper Notes Date Note Type Note Provider Name and Address Organization Details Recorded Time 03/07/2025 text/html pt here today with c/o cough, congestion and wheezing for the [...] a sleep study. Megan Pena APRN [address] [facility], [place], [address], [facility] [employer] 03/07/2025 14:03:22 OBGyn Episode No OBEpisode recorded.
== END 2025-04-19 23:59 | disposition home or self-care (01) ==
LOC: RAD 14:38
PROVIDERS: PCP Nurse Practitioner; Visit Provider Nurse Practitioner
DX: Z12.2 Encounter for screening for malignant neoplasm of respiratory organs (principal); F17.210 Nicotine dependence, cigarettes, uncomplicated; J44.9 Chronic obstructive pulmonary disease, unspecified
CPT/HCPCS: 71271